=== PATIENT | female | born 1970 | race Caucasian/White ===

== ENCOUNTER 2016-07-03 15:23 | Inpatient (IN) | payer BC ==
[~2016-07-03] VITALS: Ht 162.6 cm; Wt 96.6 kg
[2016-07-03 18:15] VITALS: BP 153/104; PULSE 86; TEMP 36.9; O2SAT 96; BMI 36.8
[2016-07-03 19:12] LABS: HEMATOCRIT 43.6 % (37-47); MEAN CELL VOLUME 87.2 fL (80-100); MEAN CORPUSCULAR HEMOGLOBIN 30.6 pg (25-34); MEAN PLATELET VOLUME 10.4 fL (7.4-10.4); PLATELET COUNT 270 K/uL (130-400); WHITE BLOOD COUNT 14.05 K/uL (4.8-10.8)
[2016-07-03 19:23] LABS: PARTIAL THROMBOPLASTIN RATIO 1.1
[2016-07-03] MEDS ORDERED: POLYETHYLENE (MIRALAX) 17 GM PACK PO PRN (19:45)
[2016-07-03] MEDS ORDERED: NITROGLYCERIN 0.4 MG SL PER TAB CHARGE SL PRN (19:45)
[2016-07-03] MEDS ORDERED: ONDANSETRON INJ 2 MG/ML 2 ML VIAL IV PRN (19:45)
[2016-07-03] MEDS ORDERED: MoRPHine SULFATE 2 MG/ML CARP IV PRN (19:45)
[2016-07-03] MEDS ORDERED: MAGNESIUM HYDROXIDE SUSP 30 ML UDC PO PRN (19:45)
[2016-07-03] MEDS ORDERED: PATIENT'S ALLERGY INFO NEEDS ENTERED SCH (19:45)
[2016-07-03] MEDS ORDERED: ALUMINUM/MAGNESIUM/SIMETH (MAALOX MAX) 30 ML UDC PO PRN (19:45)
[2016-07-03] MEDS ORDERED: ZOLPIDEM TARTRATE 5 MG TAB PO PRN (19:45)
[2016-07-03 20:17] LABS: MEAN CORPUSCULAR HGB CONC 35.1 g/dl (32-36)
[2016-07-03 20:21] LABS: BASO % 0.5 %; BASO ABS # 0.07 K/uL (0-0.2); COMPLETE YES; EOS % 1.4 %; IG% 0.2 %; LYMPH % 39.6 %; LYMPH ABS # 5.56 K/uL (1.2-3.4); MONO % 4.1 %; NEUT % 54.2 %
[2016-07-03] MEDS ORDERED: GLUCOSE 40% GEL 15 GM TUBE PO PRN (20:45)
[2016-07-03] MEDS ORDERED: DEXTROSE 50% 50 ML SYR IV PRN (20:45)
[2016-07-03] MEDS ORDERED: GLUCAGON FOR INJ 1 MG VIAL SQ PRN (20:45)
[2016-07-03] MEDS ORDERED: GLUCOSE 10 TABS/TUBE PO PRN (20:45)
[2016-07-03] MEDS: HEPARIN 25,000 UNIT/500ML D5W 500 ML IV PRN (21:08)
--- NOTE | 2016-07-03 22:00 | History and Physical ---
History & Physical Date & Time of Service: Jul 03, 2016 at 21:22 Chief Complaint: Nstemi Primary Care Physician: No Doctor, Assigned History of Present Illness Source: patient 45 y/o F Hx HTN - presents as a direct transfer due to new onset DM, DKA, CP with elevated troponin. Pt developed central CP radiating into her shoulders, lasting 3 hours and accompanied by nausea and vomiting x 2. On arrival to the ER labs were consistent with DKA. She had a negative troponin initially and then a second + troponin. A decision was then made to transfer her to [facility] for further evaluation and cardiac cath rn access. She complains only of a headache and weakness upon arrival. Her CP and nausea have resolved. She arrived on a heparin GTT and an initial POC was 164. She has no previous history of DM or heart disease. Repeat labs are currently pending to evaluate the status of her DKA as she was treated for a few hours prior to her + troponin result and subsequent transfer. Past Medical/Surgical History HTN New onset DM Smoker Obese Family History Grandfather with an IA at age 76 Mother with DM Neither parent with CAD Social History Smokes one pack daily > 20 yrs Smoking Status: Current Every Day Smoker Alcohol Use: none Allergies Coded Allergies: No Known Allergies (Unverified , 07/03/16) Review of Systems Constitutional: No chills, No fever, No sweats Eyes: No eye pain, No worsening of vision ENT: No hearing loss, No nasal symptoms, No unusual epistaxis Respiratory: + shortness of breath, No cough, No sputum, No wheezing Cardiovascular: + chest pain, No PND, No claudication, No edema, No orthopnea, No palpitations Abdomen: + nausea, + vomiting, No constipation, No diarrhea, No pain Musculoskeletal: No joint pain, No muscle pain Genitourinary - Female: No dysuria, No hematuria, No urinary frequency, No urinary incontinence, No urinary retention, No urinary urgency Neurologic: No memory loss, No paralysis, No weakness Psychiatric: No depression symptoms Endocrine: + fatigue Hematologic / Lymphatic: No abnormal bleeding/bruising Integumentary: No rash Allergic / Immunologic: No environmental allergies Physical Exam Vital Signs Date Time Temp Pulse Resp B/P Pulse Ox O2 Delivery O2 Flow Rate FiO2 07/03/16 18:15 36.9 86 16 153/104 96 Room Air General Appearance: WD/WN, no apparent distress Head: normocephalic, atraumatic Eyes: normal inspection, PERRL, EOMI ENT: normal ENT inspection, pharynx normal Neck: supple, no adenopathy, thyroid normal, no JVD Respiratory/Chest: chest non-tender, lungs clear, normal breath sounds, no respiratory distress, no accessory muscle use Cardiovascular: regular rate, rhythm, no edema, no gallop Abdomen/GI: normal bowel sounds, non tender, soft Back: normal inspection, no CVA tenderness Extremities/Musculoskelatal: normal inspection, no calf tenderness, normal capillary refill, no pedal edema, normal range of motion 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, no motor/sensory deficits, alert, normal mood/affect, normal reflexes, oriented x 3 Skin: normal color, warm/dry, no rash Diagnostics Laboratory Results Results Past 24 Hours Test 07/03/16 18:31 07/03/16 19:00 07/03/16 20:30 07/03/16 21:11 Range/Units Bedside Glucose 194 174 70-90 mg/dl White Blood Count 14.05 4.8-10.8 K/uL Red Blood Count 5.00 4.2-5.4 M/uL Hemoglobin 15.3 12.0-16.0 g/dL Hematocrit 43.6 37-47 % Mean Corpuscular Volume 87.2 80-100 fL Mean Corpuscular Hemoglobin 30.6 25-34 pg Mean Corpuscular Hemoglobin Concent 35.1 32-36 g/dl Platelet Count 270 130-400 K/uL Mean Platelet Volume 10.4 7.4-10.4 fL Neutrophils (%) (Auto) 54.2 % Lymphocytes (%) (Auto) 39.6 % Monocytes (%) (Auto) 4.1 % Eosinophils (%) (Auto) 1.4 % Basophils (%) (Auto) 0.5 % Neutrophils # (Auto) 7.62 1.4-6.5 K/uL Lymphocytes # (Auto) 5.56 1.2-3.4 K/uL Monocytes # (Auto) 0.57 0.11-0.59 K/uL Eosinophils # (Auto) 0.20 0-0.5 K/uL Basophils # (Auto) 0.07 0-0.2 K/uL RDW Standard Deviation 44.4 36.4-46.3 fL RDW Coefficient of Variation 14.1 11.5-14.5 % Immature Granulocyte % (Auto) 0.2 % Immature Granulocyte # (Auto) 0.03 0.00-0.02 K/uL Activated Partial Thromboplast Time 27.8 21.0-31.0 SECONDS Partial Thromboplastin Ratio 1.1 EKG Sinus - Inf T wv inversion - no acute elevation Impression Assessment and Plan 45 y/o F Hx HTN - presents as a direct transfer due to new onset DM, DKA, CP with elevated troponin. Pt developed central CP radiating into her shoulders, lasting 3 hours and accompanied by nausea and vomiting x 2. On arrival to the ER labs were consistent with DKA. She had a negative troponin initially and then a second + troponin. A decision was then made to transfer her to [facility] for further evaluation and cardiac cath rn access. She complains only of a headache and weakness upon arrival. Her CP and nausea have resolved. She arrived on a heparin GTT and an initial POC was 164. She has no previous history of DM or heart disease. Repeat labs are currently pending to evaluate the status of her DKA as she was treated for a few hours prior to her + troponin result and subsequent transfer. 1) New onset DM, DKA - pending labs to assess status as POC is now in 160s. She will be placed on a protocol as needed or a sliding scale if appropriate. Electrolytes will be checked periodically and aggressive IV hydration is provided. Hba1C was measured at 11. 2) NSTEMI - no previous history of CAD although several risk factors are present - DM, HTN, smoking, weight. Pt has been placed on full dose Heparin. Will start a statin, asa and B louis if tolerated. Cardiology consulted for assessment as she will likely need a cath prior to D/C. Serial troponins are ordered as well as a repeat EKG and an echo to assess wall motion. She is CP free on admission 3) HTN - cont Norvasc 4) Smoking - pt has stated emphatically that she has no intention to resume smoking upon D/C. Full code - full dose heparin Tital time for this admit including review of labs, meds, EKG, outside records - discussion with pt and family - 45 min Level of Care Telemetry Advanced Directives Existing Living Will: No Existing Power of Field Human Resources Manager: No Resuscitation Status FULL RESUSCITATION VTE Prophylaxis VTE Risk Assessment Done? Y/N: Yes Risk Level: Moderate Given or contraindicated: Other Anticoagulation
[2016-07-03 22:05] LABS: BUN/CREATININE RATIO 21.7 (10-20); CALCIUM 8.5 mg/dl (8.5-10.1); CREATININE 0.58 mg/dl (0.60-1.20); MAGNESIUM 1.8 mg/dl (1.8-2.4); PHOSPHORUS 3.2 mg/dl (2.5-4.9); POTASSIUM 3.4 mmol/L (3.5-5.1)
[2016-07-03] MEDS ORDERED: INSULIN GLARGINE PER UNIT 10 UNITS in SYRINGE 0 ML SC STA (22:11)
[2016-07-03 22:12] LABS: BETA-HYDROXYBUTYRATE 2.71 mg/dL (0.2-2.81)
[2016-07-03] MEDS ORDERED: CLOPIDOGREL BISULFATE 300 MG TAB PO STA (22:24)
[2016-07-03] MEDS ORDERED: MAGNESIUM SULFATE 1GM / D5W 1 GM in PREMIXED IN D5W 100 ML IV ONE (22:30)
[2016-07-03] MEDS ORDERED: OXYCODONE/ACETAMINOPHEN 5-325 TAB PO ONE (22:30)
[2016-07-03] MEDS: POTASSIUM CHLR 10 MEQ / WTR 10 MEQ in PREMIXED WATER 100 ML IV SCH (23:05)
[2016-07-03] MEDS: NSS + 20MEQ KCL 1000ML 1,000 ML IV SCH (23:05)
[2016-07-03] MEDS: ATORVASTATIN 40 MG TAB PO SCH (23:06)
[2016-07-03 23:11] VITALS: BP 142/93; PULSE 86; TEMP 36.9; O2SAT 98
[2016-07-03] MEDS: INSULIN ASPART 100 UNITS/ML 3 ML PEN SC SCH (23:18)
[2016-07-04] MEDS: POTASSIUM CHLR 10 MEQ / WTR 10 MEQ in PREMIXED WATER 100 ML IV SCH ×3 (01:44→04:45)
[2016-07-04 03:29] LABS: PARTIAL THROMBOPLASTIN RATIO 1.5
[2016-07-04] MEDS ORDERED: HEPARIN IV BOLUS 6,000 UNIT in SYRINGE 0 ML IV ONE (03:45)
[2016-07-04 03:50] LABS: BUN/CREATININE RATIO 24.1 (10-20); CALCIUM 5.8 mg/dl (8.5-10.1); CREATININE 0.38 mg/dl (0.60-1.20); MAGNESIUM 1.6 mg/dl (1.8-2.4); POTASSIUM 3.3 mmol/L (3.5-5.1)
[2016-07-04] MEDS: HEPARIN 25,000 UNIT/500ML D5W 500 ML IV PRN ×2 (03:59→15:24)
[2016-07-04 04:26] VITALS: BP 143/99; PULSE 81; TEMP 36.7; O2SAT 97
[2016-07-04] MEDS ORDERED: POTASSIUM PHOS 3 MMOL/1 ML INFUSION IV STA (04:39)
[2016-07-04] MEDS ORDERED: CALCIUM GLUCONATE 10% 1,000 MG in SODIUM CHLORIDE 0.9% 50ML 50 ML IV STA (04:43)
[2016-07-04] MEDS ORDERED: POTASSIUM PHOSPHATE INJ 21 MMOL in SODIUM CHLORIDE 0.9% 500ML 500 ML IV SCH (05:00)
[2016-07-04] MEDS: MAGNESIUM SULFATE 1GM / D5W 1 GM in PREMIXED IN D5W 100 ML IV SCH ×2 (05:23→06:28)
[2016-07-04] MEDS: CALCIUM CARBONATE 1250MG TAB PO SCH ×3 (05:24→20:45)
[2016-07-04] MEDS: ACETAMINOPHEN 325 MG TAB PO PRN ×2 (05:26→15:15)
[2016-07-04] MEDS: INSULIN ASPART 100 UNITS/ML 3 ML PEN SC SCH ×4 (05:30→20:44)
[2016-07-04 08:22] VITALS: BP 147/109; PULSE 80; TEMP 36.7; O2SAT 97
[2016-07-04 08:39] LABS: BUN/CREATININE RATIO 13.5 (10-20); CALCIUM 8.1 mg/dl (8.5-10.1); CREATININE 0.65 mg/dl (0.60-1.20); MAGNESIUM 3.2 mg/dl (1.8-2.4); PHOSPHORUS 3.7 mg/dl (2.5-4.9); POTASSIUM 4.3 mmol/L (3.5-5.1)
[2016-07-04] MEDS ORDERED: ASPIRIN 81 MG ECTAB PO SCH (09:00)
[2016-07-04] MEDS ORDERED: METOPROLOL TARTRATE 25 MG TAB PO ONE (09:31)
[2016-07-04 09:48] LABS: PARTIAL THROMBOPLASTIN RATIO 2.4
[2016-07-04] MEDS: NSS + 20MEQ KCL 1000ML 1,000 ML IV SCH ×2 (09:57→16:24)
--- NOTE | 2016-07-04 10:15 | Cardiology Consultation ---
Cardiology Consultation Date of Consultation: Jul 04, 2016. Requesting Physician: Dr. Guevara Reason for Consultation: Chest discomfort, positive enzymes Pt evaluation today including: conversation w/ patient, conversation w/ family , physical exam, lab review, review of studies, review of inpatient medication list History of Present Illness This is a very pleasant 45-year-old woman who has a history of hypertension for which she is on medications for several years but then had lost weight and controlled her blood pressure without medications, no other known cardiovascular history. About one week ago she developed a brief episode of substernal chest discomfort, however did not seek medical attention as that was brief. 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 She describes this as a chest pressure and pain with some radiation to her left arm. She presented to [place] emergency room where her troponin was found to be negative, however she was transferred here and subsequent troponins were elevated. The symptoms resolved with initial treatment with nitroglycerin in the [place] emergency room. She was also diagnosed with diabetes on arrival in [place] ER, she is not aware of that before. She does not have a history of hypercholesterolemia to her knowledge, her parents do not have heart disease although her grandfather had heart disease identified at age 76, she does have a long smoking history. She has not had exertional angina. Since arrival here she has felt well, she is on heparin and aspirin and has had no complaints. Past Medical/Surgical History (1) New onset type 2 diabetes mellitus Hypertension Family History Her grandfather of myocardial infarction at age 76 Social History Smoking Status: Current Every Day Smoker History of Alcohol Use: No (rarely) Review of Systems Constitutional: No fever, No weakness, No weight loss Respiratory: No cough, No dyspnea on exertion, No shortness of breath, No wheezing Cardiac: + see HPI, No PND, No chest pain, No edema, No orthopnea, No palpitations Abdomen: No GI bleeding, No diarrhea, No nausea, No pain, No vomiting Female : No problem reported Neurologic: No balance problems, No numbness/tingling, No paralysis, No weakness Heme: No abnormal bleeding/bruising, No clotting problems Endo: No fatigue Skin: No problem reported All Other Systems: Reviewed and Negative Allergies Coded Allergies: No Known Allergies (Unverified , 4/14/17) Medications Current Inpatient Medications Medications (Trade) Dose Ordered Sig/Shana Route Start Time Stop Time Status Last Admin Dose Admin Insulin Aspart (novoLOG ASPART) SLIDING SCALE G... Q6 SC 07/04/16 00:00 07/04/16 05:30 4 UNITS Acetaminophen (Tylenol Tab) 650 mg Q4H PRN PO 07/03/16 19:45 08/02/16 19:44 07/04/16 05:26 650 MG Al Hydrox/Mg Hydrox/Simethicone (Maalox Max Susp) 15 ml Q4H PRN PO 07/03/16 19:45 08/02/16 19:44 Magnesium Hydroxide (Milk Of Magnesia Susp) 30 ml Q12H PRN PO 07/03/16 19:45 08/02/16 19:44 Zolpidem Tartrate (Ambien Tab) 5 mg HSZ PRN PO 07/03/16 19:45 08/02/16 19:44 Ondansetron HCl (Zofran Inj) 4 mg Q6H PRN IV 07/03/16 19:45 08/02/16 19:44 Nitroglycerin (Nitrostat Tab) 0.4 mg UD PRN SL 07/03/16 19:45 08/02/16 19:44 Morphine Sulfate (MoRPHine SULFATE INJ) 2 mg Q30M PRN IV 07/03/16 19:45 07/17/16 19:44 Aspirin (Ecotrin Tab) 81 mg QAM PO 07/04/16 09:00 08/03/16 08:59 07/04/16 08:35 81 MG Polyethylene 17 gm 17 gm DAILY PRN PO 07/03/16 19:45 08/02/16 19:44 Heparin Sodium/ Dextrose (Heparin 25,000 Unit/500ml D5W) 500 ml @ 32 mls/hr [id number] PRN IV 07/03/16 20:45 08/02/16 20:44 07/04/16 03:59 32 MLS/HR Glucose (Glucose 40% Gel) 15-30 GRAMS 15 GRAMS... UD PRN PO 07/03/16 20:45 08/02/16 20:44 Glucose (Glucose Chew Tab) 4-8 Tablets 4 Tabl... UD PRN PO 07/03/16 20:45 08/02/16 20:44 Dextrose (Dextrose 50% 50ML Syringe) 25-50ML OF 50% DW IV FOR... UD PRN IV 07/03/16 20:45 08/02/16 20:44 Glucagon 1 mg 1 mg UD PRN SQ 07/03/16 20:45 08/02/16 20:44 Potassium Chloride/Sodium Chloride (Nss + 20meq KCl 1000ml) 1,000 ml @ 150 mls/hr Q6H40M IV 07/03/16 22:45 07/04/16 18:44 07/04/16 09:57 150 MLS/HR Atorvastatin Calcium (Lipitor Tab) 40 mg HS PO 07/04/16 21:00 08/03/16 20:59 07/03/16 23:06 40 MG Calcium Carbonate (oS-Chicho 500 TAB) 1,250 mg BID PO 07/04/16 09:00 08/03/16 08:59 07/04/16 08:35 1,250 MG Metoprolol Tartrate (Lopressor Tab) 25 mg BID PO 07/04/16 21:00 08/03/16 20:59 Physical Exam Vital Signs Past 12 Hours Date Time Temp Pulse Resp B/P Pulse Ox O2 Delivery O2 Flow Rate FiO2 07/04/16 08:22 36.7 80 20 147/109 97 Room Air 07/04/16 08:00 Room Air 07/04/16 04:26 36.7 81 18 143/99 97 Room Air 07/04/16 04:00 Room Air 07/03/16 23:59 Room Air 07/03/16 23:11 36.9 86 16 142/93 98 Room Air Constitutional: General Apperance: overweight Level of Distress: NAD Psychiatric: Mental Status: active & alert Head: normocephalic Eyes: EOM: EOMI ENMT: normal ENT inspection, hearing grossly normal Neck: supple, no masses Lungs: Respiratory effort: no dyspnea, good air movement Auscultation: breath sounds normal, no wheezing Cardiovascular: Heart Auscultation: RRR, no murmurs, no rubs, no gallops Peripheral Pulses: Bruits: none appreciated Abdomen: Bowel Sounds: normal Inspection & Palpation: soft, no tenderness, guarding & rebound, no masses Musculoskeletal: normal strength (5/5 throughout) Extremities: no edema Neurologic: Cranial Nerves: grossly intact Sensation: grossly intact Data Laboratory Results: Last 24 Hours Test 07/03/16 18:31 07/03/16 19:00 07/03/16 20:30 07/03/16 21:30 Bedside Glucose 194 mg/dl 174 mg/dl White Blood Count 14.05 K/uL Red Blood Count 5.00 M/uL Hemoglobin 15.3 g/dL Hematocrit 43.6 % Mean Corpuscular Volume 87.2 fL Mean Corpuscular Hemoglobin 30.6 pg Mean Corpuscular Hemoglobin Concent 35.1 g/dl Platelet Count 270 K/uL Mean Platelet Volume 10.4 fL Neutrophils (%) (Auto) 54.2 % Lymphocytes (%) (Auto) 39.6 % Monocytes (%) (Auto) 4.1 % Eosinophils (%) (Auto) 1.4 % Basophils (%) (Auto) 0.5 % Neutrophils # (Auto) 7.62 K/uL Lymphocytes # (Auto) 5.56 K/uL Monocytes # (Auto) 0.57 K/uL Eosinophils # (Auto) 0.20 K/uL Basophils # (Auto) 0.07 K/uL RDW Standard Deviation 44.4 fL RDW Coefficient of Variation 14.1 % Immature Granulocyte % (Auto) 0.2 % Immature Granulocyte # (Auto) 0.03 K/uL Activated Partial Thromboplast Time 27.8 SECONDS Partial Thromboplastin Ratio 1.1 Sodium Level 137 mmol/L Potassium Level 3.4 mmol/L Chloride Level 105 mmol/L Carbon Dioxide Level 25 mmol/L Anion Gap 7.0 mmol/L Blood Urea Nitrogen 13 mg/dl Creatinine 0.58 mg/dl Est Creatinine Clear Calc Drug Dose 140.2 ml/min Estimated GFR () 129.9 Estimated GFR (Non- 112.1 BUN/Creatinine Ratio 21.7 Random Glucose 201 mg/dl Calcium Level 8.5 mg/dl Phosphorus Level 3.2 mg/dl Magnesium Level 1.8 mg/dl Total Creatine Kinase 156 U/L Troponin I 3.530 ng/ml Beta-Hydroxybutyric Acid 2.71 mg/dL Test 07/03/16 23:14 07/04/16 03:09 07/04/16 05:27 07/04/16 07:10 Bedside Glucose 326 mg/dl 253 mg/dl Activated Partial Thromboplast Time 39.2 SECONDS Partial Thromboplastin Ratio 1.5 Sodium Level 145 mmol/L 136 mmol/L Potassium Level 3.3 mmol/L 4.3 mmol/L Chloride Level 117 mmol/L 107 mmol/L Carbon Dioxide Level 20 mmol/L 21 mmol/L Anion Gap 8.0 mmol/L 8.0 mmol/L Blood Urea Nitrogen 9 mg/dl 9 mg/dl Creatinine 0.38 mg/dl 0.65 mg/dl Est Creatinine Clear Calc Drug Dose 214.0 ml/min 125.6 ml/min Estimated GFR () 149.3 125.1 Estimated GFR (Non- 128.8 108.0 BUN/Creatinine Ratio 24.1 13.5 Random Glucose 215 mg/dl 273 mg/dl Calcium Level 5.8 mg/dl 8.1 mg/dl Phosphorus Level 2.0 mg/dl 3.7 mg/dl Magnesium Level 1.6 mg/dl 3.2 mg/dl Troponin I 1.860 ng/ml Test 07/04/16 09:05 07/04/16 09:34 Activated Partial Thromboplast Time 61.8 SECONDS Partial Thromboplastin Ratio 2.4 Imaging: An echocardiogram shows inferior hypokinesis consistent with ischemia or infarction. EKG: Sinus rhythm with inferior Q waves consistent with an indeterminate age myocardial infarction. No acute changes. Telemetry reviewed: Sinus rhythm, no significant arrhythmia Assessment & Plan #1. Chest discomfort: Her recent chest discomfort is consistent with ischemic heart disease. #2. Myocardial infarction: She appears stiff had a myocardial infarction recently, probably with reperfusion although it is not clear. Her initial troponin was negative followed by a significant increase and then a drop, her electric cardiogram suggests a completed inferior myocardial infarction which could be due to reperfusion or an old infarction that was unrecognized. Her echocardiogram suggests an inferior infarction as well. At this point I would continue intravenous heparin, I will switch her to aspirin 325 mg daily. With recurrent symptoms we should start Integrilin. Agree with beta blockade. She will need to have a cardiac catheterization, we will plan that for Wednesday. Thank you for allowing me to participate in her care.
[2016-07-04 10:30] LABS: CHOLESTEROL/HDL RATIO 6.5
[2016-07-04] MEDS ORDERED: NURSING VERBAL MED ORDER ONE (10:45)
[2016-07-04] MEDS ORDERED: INSULIN GLARGINE SOLOSTAR 100 UNITS/ML 3 ML PEN SC ONE (11:00)
[2016-07-04 11:03] VITALS: BP 144/102; PULSE 75; TEMP 36.3; O2SAT 97
--- NOTE | 2016-07-04 12:41 | Family Medicine Progress Note ---
Progress Note Date of Service Jul 04, 2016. Subjective Pt evaluation today including: conversation w/ patient, conversation w/ family , physical exam, chart review, lab review, review of studies Pain: No complains of pain this morning Voiding: no voiding problems, no incontinence Patient is resting comfortably in bed this morning with no acute complaints overnight. She denies any chest pain but did have a headache has now resolved. Denies any nausea, vomiting, fevers, chills, shortness of breath, abdominal pain , or dizziness. Constitutional: No chills, No fever, No sweats Respiratory: No cough, No shortness of breath, No sputum, No wheezing Cardiovascular: No chest pain, No edema Abdomen: No nausea, No pain, No vomiting Neurologic: No numbness/tingling Medications Current Inpatient Medications Medications (Trade) Dose Ordered Sig/Shana Route Start Time Stop Time Status Last Admin Dose Admin Acetaminophen (Tylenol Tab) 650 mg Q4H PRN PO 07/03/16 19:45 08/02/16 19:44 07/04/16 05:26 650 MG Al Hydrox/Mg Hydrox/Simethicone (Maalox Max Susp) 15 ml Q4H PRN PO 07/03/16 19:45 08/02/16 19:44 Magnesium Hydroxide (Milk Of Magnesia Susp) 30 ml Q12H PRN PO 07/03/16 19:45 08/02/16 19:44 Zolpidem Tartrate (Ambien Tab) 5 mg HSZ PRN PO 07/03/16 19:45 08/02/16 19:44 Ondansetron HCl (Zofran Inj) 4 mg Q6H PRN IV 07/03/16 19:45 08/02/16 19:44 Nitroglycerin (Nitrostat Tab) 0.4 mg UD PRN SL 07/03/16 19:45 08/02/16 19:44 Morphine Sulfate (MoRPHine SULFATE INJ) 2 mg Q30M PRN IV 07/03/16 19:45 07/17/16 19:44 Polyethylene 17 gm 17 gm DAILY PRN PO 07/03/16 19:45 08/02/16 19:44 Heparin Sodium/ Dextrose (Heparin 25,000 Unit/500ml D5W) 500 ml @ 32 mls/hr [id number] PRN IV 07/03/16 20:45 08/02/16 20:44 07/04/16 03:59 32 MLS/HR Glucose (Glucose 40% Gel) 15-30 GRAMS 15 GRAMS... UD PRN PO 07/03/16 20:45 08/02/16 20:44 Glucose (Glucose Chew Tab) 4-8 Tablets 4 Tabl... UD PRN PO 07/03/16 20:45 08/02/16 20:44 Dextrose (Dextrose 50% 50ML Syringe) 25-50ML OF 50% DW IV FOR... UD PRN IV 07/03/16 20:45 08/02/16 20:44 Glucagon 1 mg 1 mg UD PRN SQ 07/03/16 20:45 08/02/16 20:44 Potassium Chloride/Sodium Chloride (Nss + 20meq KCl 1000ml) 1,000 ml @ 100 mls/hr Q10H IV 07/03/16 22:45 07/04/16 18:00 07/04/16 09:57 150 MLS/HR Atorvastatin Calcium (Lipitor Tab) 40 mg HS PO 07/04/16 21:00 08/03/16 20:59 07/03/16 23:06 40 MG Calcium Carbonate (oS-Chicho 500 TAB) 1,250 mg BID PO 07/04/16 09:00 08/03/16 08:59 07/04/16 08:35 1,250 MG Metoprolol Tartrate (Lopressor Tab) 25 mg BID PO 07/04/16 21:00 08/03/16 20:59 Aspirin (Ecotrin Tab) 325 mg QAM PO 07/05/16 09:00 08/04/16 08:59 Insulin Glargine (Lantus Solostar Pen) 10 unit 2200 SC 07/04/16 22:00 07/04/16 22:01 Insulin Aspart (novoLOG ASPART) SLIDING SCALE G... ACHS SC 07/04/16 11:00 08/03/16 10:59 07/04/16 12:16 6 UNITS Objective Vital Signs Date Time Temp Pulse Resp B/P Pulse Ox O2 Delivery O2 Flow Rate FiO2 07/04/16 11:03 36.3 75 20 144/102 97 Room Air 07/04/16 08:22 36.7 80 20 147/109 97 Room Air 07/04/16 08:00 Room Air 07/04/16 04:26 36.7 81 18 143/99 97 Room Air 07/04/16 04:00 Room Air 07/03/16 23:59 Room Air 07/03/16 23:11 36.9 86 16 142/93 98 Room Air 07/03/16 20:00 Room Air 07/03/16 18:15 36.9 86 16 153/104 96 Room Air Physical Exam General Appearance: WD/WN, no apparent distress, + obese Eyes: normal inspection, sclerae normal Neck: supple, no carotid bruits, trachea midline Respiratory/Chest: chest non-tender, lungs clear, normal breath sounds, no respiratory distress, no accessory muscle use Cardiovascular: regular rate, rhythm, no edema, no gallop, no JVD, no murmur Abdomen: normal bowel sounds, non tender, soft Extremities: no pedal edema, no calf tenderness Neurologic/Psychiatric: alert, normal mood/affect, oriented x 3 Skin: no rash Laboratory Results Results Past 24 Hours Test 07/03/16 18:31 07/03/16 19:00 07/03/16 20:30 07/03/16 21:30 Range/Units Bedside Glucose 194 174 70-90 mg/dl White Blood Count 14.05 4.8-10.8 K/uL Red Blood Count 5.00 4.2-5.4 M/uL Hemoglobin 15.3 12.0-16.0 g/dL Hematocrit 43.6 37-47 % Mean Corpuscular Volume 87.2 80-100 fL Mean Corpuscular Hemoglobin 30.6 25-34 pg Mean Corpuscular Hemoglobin Concent 35.1 32-36 g/dl Platelet Count 270 130-400 K/uL Mean Platelet Volume 10.4 7.4-10.4 fL Neutrophils (%) (Auto) 54.2 % Lymphocytes (%) (Auto) 39.6 % Monocytes (%) (Auto) 4.1 % Eosinophils (%) (Auto) 1.4 % Basophils (%) (Auto) 0.5 % Neutrophils # (Auto) 7.62 1.4-6.5 K/uL Lymphocytes # (Auto) 5.56 1.2-3.4 K/uL Monocytes # (Auto) 0.57 0.11-0.59 K/uL Eosinophils # (Auto) 0.20 0-0.5 K/uL Basophils # (Auto) 0.07 0-0.2 K/uL RDW Standard Deviation 44.4 36.4-46.3 fL RDW Coefficient of Variation 14.1 11.5-14.5 % Immature Granulocyte % (Auto) 0.2 % Immature Granulocyte # (Auto) 0.03 0.00-0.02 K/uL Activated Partial Thromboplast Time 27.8 21.0-31.0 SECONDS Partial Thromboplastin Ratio 1.1 Sodium Level 137 136-145 mmol/L Potassium Level 3.4 3.5-5.1 mmol/L Chloride Level 105 98-107 mmol/L Carbon Dioxide Level 25 21-32 mmol/L Anion Gap 7.0 3-11 mmol/L Blood Urea Nitrogen 13 7-18 mg/dl Creatinine 0.58 0.60-1.20 mg/dl Est Creatinine Clear Calc Drug Dose 140.2 ml/min Estimated GFR () 129.9 Estimated GFR (Non- 112.1 BUN/Creatinine Ratio 21.7 10-20 Random Glucose 201 70-99 mg/dl Calcium Level 8.5 8.5-10.1 mg/dl Phosphorus Level 3.2 2.5-4.9 mg/dl Magnesium Level 1.8 1.8-2.4 mg/dl Total Creatine Kinase 156 26-192 U/L Troponin I 3.530 0-0.045 ng/ml Beta-Hydroxybutyric Acid 2.71 0.2-2.81 mg/dL Test 07/03/16 23:14 07/04/16 03:09 07/04/16 05:27 07/04/16 07:10 Range/Units Bedside Glucose 326 253 70-90 mg/dl Activated Partial Thromboplast Time 39.2 21.0-31.0 SECONDS Partial Thromboplastin Ratio 1.5 Sodium Level 145 136 136-145 mmol/L Potassium Level 3.3 4.3 3.5-5.1 mmol/L Chloride Level 117 107 98-107 mmol/L Carbon Dioxide Level 20 21 21-32 mmol/L Anion Gap 8.0 8.0 3-11 mmol/L Blood Urea Nitrogen 9 9 7-18 mg/dl Creatinine 0.38 0.65 0.60-1.20 mg/dl Est Creatinine Clear Calc Drug Dose 214.0 125.6 ml/min Estimated GFR () 149.3 125.1 Estimated GFR (Non- 128.8 108.0 BUN/Creatinine Ratio 24.1 13.5 10-20 Random Glucose 215 273 70-99 mg/dl Calcium Level 5.8 8.1 8.5-10.1 mg/dl Phosphorus Level 2.0 3.7 2.5-4.9 mg/dl Magnesium Level 1.6 3.2 1.8-2.4 mg/dl Troponin I 1.860 0-0.045 ng/ml Triglycerides Level 316 0-150 mg/dl Cholesterol Level 182 0-200 mg/dl HDL Cholesterol 28 mg/dl LDL Cholesterol, Calculated 91 mg/dl VLDL Cholesterol, Calculated 63 mg/dl Cholesterol/HDL Ratio 6.5 Test 07/04/16 09:05 07/04/16 11:01 Range/Units Activated Partial Thromboplast Time 61.8 21.0-31.0 SECONDS Partial Thromboplastin Ratio 2.4 Bedside Glucose 226 70-90 mg/dl Assessment and Plan Prachi is a 45 year old female with a past medical history of lifestyle controlled hypertension and is an active smoker that presents with NSTEMI and new onset Diabetes with possible DKA 1) NSTEMI - Troponins - Peak of 3.53, currently trending down - EKG - Inferior Wall Infarct - ECHO - Mild left ventricular systolic dysfunction - Inferior,basal septal,basal posterior hypokinesis - Mild concentric left ventricular hypertrophy - Left ventricular diastolic dysfunction - Cardiology Consult - ECHO and EKG suggest inferior GA - Switch Aspirin to 325mg - Stay on heparin - May require Integrilin if have new event of c/p - Cardiac Catheterization on Wednesday - Heparin - Metoprolol 25mg PO BID - Lipitor 40mg qHS - Aspirin 325mg daily - Plavix 300mg one dose last night - Acetaminophen 650mm q6h for pain - Nitroglycerin 0.4mg PRN for chest pain - Lipid profile for tomorrow morning 2) New Onset Diabetes/ DKA - Lantus 10 units this morning and 10 units tonight - Insulin sliding scale - Q6 Blood Sugar checks - Daily CBC and BMP - Beta-Hydroxybutarate - 2.71 (wnl) - Urine Ketones Positive - Diabetic Education referral placed - C-peptide ordered for tomorrow 3) Hypokalemia - Replaced - 4.3 (wnl) - KCl 20mEq with IV fluids 4) Hypomagnesemia - Replaced - 3.2 (H) - 1gm mag sulfate yesterday 5) Hypophosphatemia - Repleted - 3.7 (wnl) 6) Hypertension - Metoprolol 2.5 mg BID - Add JIMMIE inhibitor once condition is stabilized Reviewed: Pt Seen/Exam by Me History Resident Physician Supervision Note: I was present with Dr. Odom during the history and exam. I discussed the case with the resident and agree with the findings and plan as documented in the note. Any exceptions or clarifications are listed here: Patient denies any chest pain today, has had a few nonsustained runs of ventricular tachycardia on telemetry. Electrolytes have been repleted. Telemetry and vital signs reviewed No acute distress Regular rate and rhythm, no murmurs rubs or gallops Lungs clear to auscultation bilaterally, no wheezes crackles or rhonchi, breathing unlabored No carotid bruits Abdomen soft nontender nondistended positive bowel sounds Extremities no edema, 2+ dorsalis pedis pulses Skin no rashes 45-year-old female with history of obesity, smoking, and hypertension, presents with non-STEMI and new onset diabetes with DKA. Echocardiogram shows hypokinesis of the inferior wall consistent with her inferior wall GA and mildly low LV function with an EF of 40-45%. -Replete electrolytes and watch on telemetry for continued ventricular arrhythmias -Would go to cardiac cath urgently if has recurrent chest pain or sustained V. tach, otherwise plan for cardiac catheterization on Wednesday -Continue aspirin, statin, heparin drip, beta louis, when necessary nitrates -Discussed tobacco cessation at length-she would like to try Wellbutrin after discharge -Discussed new diagnosis of diabetes. She is now on long-acting insulin with pre-meal NovoLog-check autoimmune antibodies given her mixed type I and type II picture Documented By: Allison Moody
--- NOTE | 2016-07-04 13:02 | ECHOCARDIOGRAM REPORT ---
*NOTICE TO RECEIVING CONSTITUTION PARTY AGENCY This information is strictly Confidential and protected under [place] law. [place] law prohibits you from making any further disclosure of this information unless further disclosure is expressly permitted by the written consent of the person to whom it pertains or is authorized by law. A general authorization for the release of medical or other information is not sufficient for this purpose. Hospital accepts no responsibility if the information is made available to any other person, INCLUDING THE PATIENT. Interpretation Summary * Name: MARK MACIAS Study Date: 07/04/2016 07:49 AM BP: 147/109 mmHg * Patient Location: .2E\S\E211\S\1 HR: 75 * : 1970 (M/d/yyyy) Gender: Female Height: 64 in * Age: 45 yrs Ethnicity: [place] Weight: 214 lb * Ordering Physician: Esvin Guevara * Referring Physician: UNKNOWN * Performed By: Rosanne Christian RCS * * Reason For Study: ELEVATED TROPONIN * BSA: 2.0 m2 * Mild left ventricular systolic dysfunction. * Inferior,basal septal,basal posterior hypokinesis. * Mild concentric left ventricular hypertrophy. * Left ventricular diastolic dysfunction. * No significant valvular abnormalities. * Normal chamber dimensions. Procedure Details * A complete two-dimensional transthoracic echocardiogram was performed (2D, M-mode, Doppler and color flow Doppler). * A contrast injection of Definity was performed to improve assessment of LV function. * Contrast was injected into an intravenous site in the right arm. * One vial of Definity ultrasound contrast was diluted in normal saline to a total volume of 10 ml. A total of '3' ml of solution was administered during imaging. * Lot # [id number] of Definity utilized for procedure. * Expiration date 1 MAY 09. * The attending nurse who injected the contrast agent was EDITH VELASCO RN. Left Ventricle * The left ventricle is normal in size. * There is mild concentric left ventricular hypertrophy. * Ejection Fraction = 40-45%. * Left ventricular systolic function is mildly reduced. * A full diastolic examination was done with clinical findings of Class I diastolic dysfunction. * There is severe inferior wall hypokinesis. Right Ventricle * The right ventricle is normal in size and function. Atria * The left atrial size is normal. * Right atrial size is normal. * No ASD detected; PFO is not assessed. Mitral Valve * The mitral valve is normal. * There is no mitral valve stenosis. * There is no mitral regurgitation noted. Tricuspid Valve * The tricuspid valve is normal. * There is no tricuspid stenosis. * There is trace tricuspid regurgitation. Aortic Valve * The aortic valve is trileaflet. * The aortic valve opens well. * Aortic stenosis is absent. * No aortic regurgitation is present. Pulmonic Valve * The pulmonic valve is not well seen, but is grossly normal. * There is no pulmonic valvular stenosis. * There is no pulmonic valvular regurgitation. Great Vessels * The aortic root is normal size. Pericardium/Pleural * There is no pericardial effusion. Great Vessels * Normal inferior vena cava diameter and respiratory variation suggests normal central venous pressure. MMode 2D Measurements and Calculations IVSd 1.3 cm IVSs 1.5 cm LVIDd 4.3 cm LVIDs 3.4 cm LVPWd 1.4 cm LVPWs 1.4 cm IVS/LVPW 0.92 FS 20.7 % EDV(Teich) 81.2 ml ESV(Teich) 46.8 ml EF(Teich) 42.4 % EDV(cubed) 77.3 ml ESV(cubed) 38.6 ml EF(cubed) 50.0 % % IVS thick 17.1 % % LVPW thick 0.15 % LV mass(C)d 211.5 grams LV mass(C)dI 105.1 grams/m\S\2 LV mass(C)s 172.2 grams LV mass(C)sI 85.5 grams/m\S\2 SV(Teich) 34.5 ml SI(Teich) 17.1 ml/m\S\2 SV(cubed) 38.7 ml SI(cubed) 19.2 ml/m\S\2 Ao root diam 3.4 cm Ao root area 9.3 cm\S\2 ACS 1.8 cm LA dimension 3.0 cm LA/Ao 0.87 LVOT diam 2.0 cm LVOT area 3.0 cm\S\2 LVAd ap4 31.4 cm\S\2 LVLd ap4 8.5 cm EDV(MOD-sp4) 96.1 ml EDV(sp4-el) 99.1 ml LVAs ap4 23.1 cm\S\2 LVLs ap4 7.7 cm ESV(MOD-sp4) 59.7 ml ESV(sp4-el) 59.1 ml EF(MOD-sp4) 37.9 % EF(sp4-el) 40.3 % LVAd ap2 30.1 cm\S\2 LVLd ap2 8.6 cm EDV(MOD-sp2) 87.0 ml EDV(sp2-el) 89.5 ml LVAs ap2 20.9 cm\S\2 LVLs ap2 7.5 cm ESV(MOD-sp2) 48.6 ml ESV(sp2-el) 49.5 ml EF(MOD-sp2) 44.1 % EF(sp2-el) 44.8 % LVLd %diff 1.3 % EDV(MOD-bp) 91.8 ml LVLs %diff -1.94 % ESV(MOD-bp) 53.6 ml EF(MOD-bp) 41.6 % SV(MOD-sp4) 36.4 ml SI(MOD-sp4) 18.1 ml/m\S\2 SV(MOD-sp2) 38.4 ml SI(MOD-sp2) 19.1 ml/m\S\2 SV(MOD-bp) 38.1 ml SI(MOD-bp) 18.9 ml/m\S\2 SV(sp4-el) 40.0 ml SI(sp4-el) 19.9 ml/m\S\2 SV(sp2-el) 40.1 ml SI(sp2-el) 19.9 ml/m\S\2 Doppler Measurements and Calculations MV E max paco 66.0 cm/sec MV A max paco 75.7 cm/sec MV E/A 0.87 MV P1/2t max paco 79.9 cm/sec MV P1/2t 62.4 msec MVA(P1/2t) 3.5 cm\S\2 MV dec slope 375.3 cm/sec\S\2 MV dec time 0.24 sec Ao V2 max 132.9 cm/sec Ao max PG 7.1 mmHg Ao max PG (full) 3.0 mmHg LAINE(V,A) 2.3 cm\S\2 LAINE(V,D) 2.3 cm\S\2 LV V1 max PG 4.0 mmHg LV V1 max 100.5 cm/sec PA V2 max 68.4 cm/sec PA max PG 1.9 mmHg
[2016-07-04 14:41] VITALS: BP 159/109; PULSE 84; TEMP 36.8; O2SAT 98
[2016-07-04 14:44] LABS: BUN/CREATININE RATIO 10.6 (10-20); CALCIUM 8.3 mg/dl (8.5-10.1); CREATININE 0.74 mg/dl (0.60-1.20); POTASSIUM 4.2 mmol/L (3.5-5.1)
[2016-07-04 19:01] VITALS: BP 123/89; PULSE 77; TEMP 36.9; O2SAT 98
[2016-07-04] MEDS: ATORVASTATIN 40 MG TAB PO SCH (20:45)
[2016-07-04] MEDS: METOPROLOL TARTRATE 25 MG TAB PO SCH (20:46)
[2016-07-04] MEDS ORDERED: INSULIN GLARGINE SOLOSTAR 100 UNITS/ML 3 ML PEN SC SCH (22:00)
[2016-07-05] VITALS (7 sets, daily range): BP systolic 104–157; BP diastolic 58–106; PULSE 63–83; TEMP 36.9–37.1; O2SAT 96–99
[2016-07-05 05:25] LABS: HEMATOCRIT 44.9 % (37-47); MEAN CELL VOLUME 87.9 fL (80-100); MEAN CORPUSCULAR HEMOGLOBIN 30.7 pg (25-34); MEAN PLATELET VOLUME 10.4 fL (7.4-10.4); PLATELET COUNT 288 K/uL (130-400); RED BLOOD COUNT 5.11 M/uL (4.2-5.4); WHITE BLOOD COUNT 11.82 K/uL (4.8-10.8)
[2016-07-05 05:36] LABS: PARTIAL THROMBOPLASTIN RATIO 1.7
[2016-07-05 05:43] LABS: BUN/CREATININE RATIO 10.4 (10-20); CALCIUM 8.8 mg/dl (8.5-10.1); CREATININE 0.7 mg/dl (0.60-1.20); PHOSPHORUS 3.8 mg/dl (2.5-4.9); POTASSIUM 4.2 mmol/L (3.5-5.1)
[2016-07-05] MEDS ORDERED: HEPARIN IV BOLUS 3,000 UNIT in SYRINGE 0 ML IV ONE (06:45)
[2016-07-05] MEDS: HEPARIN 25,000 UNIT/500ML D5W 500 ML IV PRN ×2 (06:49→22:40)
[2016-07-05] MEDS: ASPIRIN 325 MG ECTAB PO SCH (08:39)
[2016-07-05] MEDS: METOPROLOL TARTRATE 25 MG TAB PO SCH ×2 (08:39→21:03)
[2016-07-05] MEDS: CALCIUM CARBONATE 1250MG TAB PO SCH ×2 (08:39→21:03)
[2016-07-05] MEDS: INSULIN ASPART 100 UNITS/ML 3 ML PEN SC SCH ×4 (08:43→21:00)
--- NOTE | 2016-07-05 11:30 | Cardiology Follow-Up ---
Subjective Date of Service: Jul 05, 2016. Pt evaluation today including: conversation w/ patient, physical exam, lab review, review of studies, review of inpatient medication list History of Present Illness This is a very pleasant 45-year-old woman who has a history of hypertension for which she is on medications for several years but then had lost weight and controlled her blood pressure without medications, no other known cardiovascular history. About one week ago she developed a brief episode of substernal chest discomfort, however did not seek medical attention as that was brief. 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 She describes this as a chest pressure and pain with some radiation to her left arm. She presented to [place] emergency room where her troponin was found to be negative, however she was transferred here and subsequent troponins were elevated. The symptoms resolved with initial treatment with nitroglycerin in the [place] emergency room. She was also diagnosed with diabetes on arrival in [place] ER, she is not aware of that before. She does not have a history of hypercholesterolemia to her knowledge, her parents do not have heart disease although her grandfather had heart disease identified at age 76, she does have a long smoking history. She has not had exertional angina. Since arrival here she has felt well, she is on heparin and aspirin and has had no complaints. No further chest discomfort. Social History Smoking Status: Current Every Day Smoker History of Alcohol Use: No (rarely) Review of Systems Respiratory: No cough, No shortness of breath, No sputum, No wheezing Cardiac: No chest pain, No edema Medications Cardiovascular: Item Value Date Time Aspirin 325 mg 07/05/16 0900 (Ecotrin Tab) QAM/PO 07/05/16 0839 Atorvastatin 40 mg 07/04/16 2100 Calcium HS/PO 07/04/162044 (Lipitor Tab) Metoprolol 25 mg 07/04/16 2100 Tartrate BID/PO 07/05/16 0839 (Lopressor Tab) Heparin Sodium/ 500 ml @ 35 mls/hr 07/03/162044 Dextrose .[id number] PRN/IV 07/05/16 0649 Objective Vital Signs Past 12 Hours Date Time Temp Pulse Resp B/P Pulse Ox O2 Delivery O2 Flow Rate FiO2 07/05/16 08:19 37.1 83 20 145/102 98 Room Air 07/05/16 08:00 Room Air 07/05/16 04:39 37.1 74 18 144/99 97 Room Air 07/05/16 04:00 Room Air 07/05/16 00:10 37.0 75 18 133/84 97 Room Air 07/05/16 00:00 Room Air Last Recorded Weight-Kilograms: 96.800 Intake & Output 8-Hour Column 07/04/16 07/05/16 07/05/16 16:00 00:00 08:00 Intake Total 1724 ml 1554 ml 1370 ml Output Total 2700 ml 1500 ml 1100 ml Balance -976 ml 54 ml 270 ml 24-Hour Column 07/05/16 08:00 Intake Total 4648 ml Output Total 5300 ml Balance -652 ml Physical Exam Constitutional: General Apperance: overweight Level of Distress: NAD Lungs: Respiratory effort: no dyspnea, good air movement Auscultation: breath sounds normal, no wheezing Cardiovascular: Heart Auscultation: RRR, no murmurs, no rubs, no gallops Peripheral Pulses: Bruits: none appreciated Extremities: no edema Data Laboratory Results: Last 24 Hours Test 07/04/16 14:15 07/04/16 15:57 07/04/16 20:42 07/05/16 00:14 Sodium Level 139 mmol/L Potassium Level 4.2 mmol/L Chloride Level 107 mmol/L Carbon Dioxide Level 26 mmol/L Anion Gap 6.0 mmol/L Blood Urea Nitrogen 8 mg/dl Creatinine 0.74 mg/dl Est Creatinine Clear Calc Drug Dose 110.3 ml/min Estimated GFR () 114.2 Estimated GFR (Non- 98.5 BUN/Creatinine Ratio 10.6 Random Glucose 211 mg/dl Calcium Level 8.3 mg/dl Bedside Glucose 201 mg/dl 144 mg/dl 164 mg/dl Test 07/05/16 05:08 07/05/16 05:15 07/05/16 06:49 07/05/16 11:01 Sodium Level 139 mmol/L Potassium Level 4.2 mmol/L Chloride Level 106 mmol/L Carbon Dioxide Level 27 mmol/L Anion Gap 6.0 mmol/L Blood Urea Nitrogen 7 mg/dl Creatinine 0.70 mg/dl Est Creatinine Clear Calc Drug Dose 116.6 ml/min Estimated GFR () 122.1 Estimated GFR (Non- 105.4 BUN/Creatinine Ratio 10.4 Random Glucose 212 mg/dl Calcium Level 8.8 mg/dl Phosphorus Level 3.8 mg/dl White Blood Count 11.82 K/uL Red Blood Count 5.11 M/uL Hemoglobin 15.7 g/dL Hematocrit 44.9 % Mean Corpuscular Volume 87.9 fL Mean Corpuscular Hemoglobin 30.7 pg Mean Corpuscular Hemoglobin Concent 35.0 g/dl RDW Standard Deviation 45.6 fL RDW Coefficient of Variation 14.1 % Platelet Count 288 K/uL Mean Platelet Volume 10.4 fL Activated Partial Thromboplast Time 43.8 SECONDS Partial Thromboplastin Ratio 1.7 Bedside Glucose 189 mg/dl 189 mg/dl Imaging: Echo shows inferior and posterior hypokinesis Telemetry reviewed: Sinus rhythm and no significant arrhythmia. Assessment and Plan #1. Chest discomfort: Her recent chest discomfort is consistent with ischemic heart disease. #2. Myocardial infarction: She appears to have had a myocardial infarction recently, probably with reperfusion although it is not clear. Her initial troponin was negative followed by a significant increase and then a drop, her electrocardiogram suggests a completed inferior myocardial infarction which could be due to reperfusion or an old infarction that was unrecognized. Her echocardiogram suggests an inferior infarction as well. At this point I would continue intravenous heparin, I will switch her to aspirin 325 mg daily. With recurrent symptoms we should start Integrilin. Agree with beta blockade. She will need to have a cardiac catheterization, I reviewed that with her and I will place her on the schedule for 07/06/2016. Thank you for allowing me to participate in her care.
[2016-07-05 12:42] LABS: PARTIAL THROMBOPLASTIN RATIO 2.1
--- NOTE | 2016-07-05 15:54 | Family Medicine Progress Note ---
Progress Note Date of Service Jul 05, 2016. Subjective Pt evaluation today including: conversation w/ patient, physical exam, chart review, lab review, review of studies Pain: No pain reported this morning Voiding: no voiding problems, no incontinence Patient resting comfortably in bed this morning with no acute complaints overnight. Did not have much of an appetite this morning. Denies any chest pain , shortness of breath, or lightheadedness Constitutional: No fever Respiratory: No cough, No shortness of breath Cardiovascular: No chest pain, No palpitations Abdomen: No nausea, No pain, No vomiting Medications Current Inpatient Medications Medications (Trade) Dose Ordered Sig/Shana Route Start Time Stop Time Status Last Admin Dose Admin Acetaminophen (Tylenol Tab) 650 mg Q4H PRN PO 07/03/16 19:45 08/02/16 19:44 07/04/16 15:15 650 MG Al Hydrox/Mg Hydrox/Simethicone (Maalox Max Susp) 15 ml Q4H PRN PO 07/03/16 19:45 08/02/16 19:44 Magnesium Hydroxide (Milk Of Magnesia Susp) 30 ml Q12H PRN PO 07/03/16 19:45 08/02/16 19:44 Zolpidem Tartrate (Ambien Tab) 5 mg HSZ PRN PO 07/03/16 19:45 08/02/16 19:44 Ondansetron HCl (Zofran Inj) 4 mg Q6H PRN IV 07/03/16 19:45 08/02/16 19:44 Nitroglycerin (Nitrostat Tab) 0.4 mg UD PRN SL 07/03/16 19:45 08/02/16 19:44 Morphine Sulfate (MoRPHine SULFATE INJ) 2 mg Q30M PRN IV 07/03/16 19:45 07/17/16 19:44 Polyethylene 17 gm 17 gm DAILY PRN PO 07/03/16 19:45 08/02/16 19:44 Heparin Sodium/ Dextrose (Heparin 25,000 Unit/500ml D5W) 500 ml @ 35 mls/hr [id number] PRN IV 07/03/16 20:45 08/02/16 20:44 07/05/16 06:49 35 MLS/HR Glucose (Glucose 40% Gel) 15-30 GRAMS 15 GRAMS... UD PRN PO 07/03/16 20:45 08/02/16 20:44 Glucose (Glucose Chew Tab) 4-8 Tablets 4 Tabl... UD PRN PO 07/03/16 20:45 08/02/16 20:44 Dextrose (Dextrose 50% 50ML Syringe) 25-50ML OF 50% DW IV FOR... UD PRN IV 07/03/16 20:45 08/02/16 20:44 Glucagon (Glucagon Inj) 1 mg UD PRN SQ 07/03/16 20:45 08/02/16 20:44 Atorvastatin Calcium (Lipitor Tab) 40 mg HS PO 07/04/16 21:00 08/03/16 20:59 07/04/16 20:45 40 MG Calcium Carbonate (oS-Chicho 500 TAB) 1,250 mg BID PO 07/04/16 09:00 08/03/16 08:59 07/05/16 08:39 1,250 MG Metoprolol Tartrate (Lopressor Tab) 25 mg BID PO 07/04/16 21:00 08/03/16 20:59 07/05/16 08:39 25 MG Aspirin (Ecotrin Tab) 325 mg QAM PO 07/05/16 09:00 08/04/16 08:59 07/05/16 08:39 325 MG Insulin Aspart SLIDING SCALE G... ACHS SC 07/04/16 11:00 08/03/16 10:59 07/05/16 12:23 5 UNITS Sodium Chloride (Nss 1000ml) 1,000 ml @ 97 mls/hr [id number] IV 07/06/16 00:00 08/05/16 00:00 Objective Vital Signs Date Time Temp Pulse Resp B/P Pulse Ox O2 Delivery O2 Flow Rate FiO2 07/05/16 14:44 36.9 72 18 141/98 98 Room Air 07/05/16 12:00 Room Air 07/05/16 11:04 37.0 63 20 136/91 96 Room Air 07/05/16 08:19 37.1 83 20 145/102 98 Room Air 07/05/16 08:00 Room Air 07/05/16 04:39 37.1 74 18 144/99 97 Room Air 07/05/16 04:00 Room Air 07/05/16 00:10 37.0 75 18 133/84 97 Room Air 07/05/16 00:00 Room Air 07/04/16 20:00 Room Air 07/04/16 19:01 36.9 77 18 123/89 98 Room Air 07/04/16 16:00 Room Air Physical Exam General Appearance: WD/WN, no apparent distress Neck: supple, no carotid bruits, trachea midline Respiratory/Chest: chest non-tender, lungs clear, normal breath sounds, no respiratory distress, no accessory muscle use Cardiovascular: regular rate, rhythm, no edema, no gallop, no murmur Abdomen: normal bowel sounds, non tender, soft Extremities: non-tender, normal inspection, no pedal edema, no calf tenderness Neurologic/Psychiatric: alert, normal mood/affect, oriented x 3 Laboratory Results Results Past 24 Hours Test 07/04/16 15:57 07/04/16 20:42 07/05/16 00:14 07/05/16 05:08 Range/Units Bedside Glucose 201 144 164 70-90 mg/dl Sodium Level 139 136-145 mmol/L Potassium Level 4.2 3.5-5.1 mmol/L Chloride Level 106 98-107 mmol/L Carbon Dioxide Level 27 21-32 mmol/L Anion Gap 6.0 3-11 mmol/L Blood Urea Nitrogen 7 7-18 mg/dl Creatinine 0.70 0.60-1.20 mg/dl Est Creatinine Clear Calc Drug Dose 116.6 ml/min Estimated GFR () 122.1 Estimated GFR (Non- 105.4 BUN/Creatinine Ratio 10.4 10-20 Random Glucose 212 70-99 mg/dl Calcium Level 8.8 8.5-10.1 mg/dl Phosphorus Level 3.8 2.5-4.9 mg/dl Test 07/05/16 05:15 07/05/16 06:49 07/05/16 11:01 07/05/16 12:15 Range/Units White Blood Count 11.82 4.8-10.8 K/uL Red Blood Count 5.11 4.2-5.4 M/uL Hemoglobin 15.7 12.0-16.0 g/dL Hematocrit 44.9 37-47 % Mean Corpuscular Volume 87.9 80-100 fL Mean Corpuscular Hemoglobin 30.7 25-34 pg Mean Corpuscular Hemoglobin Concent 35.0 32-36 g/dl RDW Standard Deviation 45.6 36.4-46.3 fL RDW Coefficient of Variation 14.1 11.5-14.5 % Platelet Count 288 130-400 K/uL Mean Platelet Volume 10.4 7.4-10.4 fL Activated Partial Thromboplast Time 43.8 55.6 21.0-31.0 SECONDS Partial Thromboplastin Ratio 1.7 2.1 Bedside Glucose 189 189 70-90 mg/dl Assessment and Plan Prachi is a 45 year old female with a past medical history of lifestyle controlled hypertension and is an active smoker that presents with NSTEMI and new onset Diabetes with possible DKA 1) NSTEMI - Inferior wall CT with mildly reduced LV function, currently stable with no continued c/p - Troponins - Peak of 3.53, currently trending down - EKG - Inferior Wall Infarct - ECHO - Mild left ventricular systolic dysfunction - Inferior,basal septal,basal posterior hypokinesis - Mild concentric left ventricular hypertrophy - Left ventricular diastolic dysfunction - Cardiology Consult - ECHO and EKG suggest inferior CT - Switch Aspirin to 325mg - Stay on heparin - May require Integrilin if have new event of c/p - Cardiac Catheterization on Wednesday - Heparin - Stop tomorrow at 8am - Metoprolol 25mg PO BID - Lipitor 40mg qHS - Aspirin 325mg daily - Plavix 300mg one dose last night - Acetaminophen 650mm q6h for pain - Nitroglycerin 0.4mg PRN for chest pain - Lipid profile - Triglycerides elevated (316) 2) New Onset Diabetes/ DKA - Lantus 18 units qhs tonight (got 10 units yesterday in the morning as well as at night) - Insulin sliding scale - Q6 Blood Sugar checks - Daily CBC and BMP - Beta-Hydroxybutarate - 2.71 (wnl) - Urine Ketones Positive - Diabetic Education referral placed - C-peptide - awaiting results 3) FEN - Hypokalemia - Replaced - 4.2 (N) - Hypomagnesemia - Replaced - 3.2 (H) - Hypophosphatemia - Replaced - 3.8 (N) 4) Hypertension - Metoprolol 2.5 mg BID - Add JIMMIE inhibitor once condition is stabilized 5) Code Status - Full resuscitation History Resident Physician Supervision Note: I interviewed and examined the patient. Discussed with Dr. Odom and agree with findings and plan as documented in the note. Any exceptions or clarifications are listed here: Dloomy Patient denies any chest pain today, no further runs of ventricular tachycardia on telemetry. Electrolytes have been repleted. Blood glucose is better controlled. Telemetry and vital signs reviewed No acute distress Regular rate and rhythm, no murmurs rubs or gallops Lungs clear to auscultation bilaterally, no wheezes crackles or rhonchi, breathing unlabored No carotid bruits Abdomen soft nontender nondistended positive bowel sounds Extremities no edema, 2+ dorsalis pedis pulses Skin no rashes 45-year-old female with history of obesity, smoking, and hypertension, presents with non-STEMI and new onset diabetes with DKA. Echocardiogram shows hypokinesis of the inferior wall consistent with her inferior wall CT and mildly low LV function with an EF of 40-45%. -Repleted electrolytes and continue watch on telemetry for continued ventricular arrhythmias -Continue heparin drip for at least 48 hours status post non-STEMI and will hold prior to the cardiac cath in the morning -Would go to cardiac cath urgently if has recurrent chest pain or sustained V. tach, otherwise plan for cardiac catheterization on Wednesday -Continue aspirin, statin, heparin drip, beta louis, and nitrates when necessary -Discussed tobacco cessation at length-she would like to try Wellbutrin after discharge -Discussed new diagnosis of diabetes. She is now on long-acting insulin with pre-meal NovoLog-check autoimmune antibodies given her mixed type I and type II picture Documented By: Allison Moody
[2016-07-05] MEDS: INSULIN GLARGINE SOLOSTAR 100 UNITS/ML 3 ML PEN SC SCH (21:00)
[2016-07-05] MEDS: ATORVASTATIN 40 MG TAB PO SCH (21:03)
[2016-07-06] VITALS (18 sets, daily range): BP systolic 113–160; BP diastolic 68–96; PULSE 63–76; TEMP 36.6–36.9; O2SAT 94–100; BMI 35.9
[2016-07-06 06:24] LABS: BASO % 0.3 %; BASO ABS # 0.04 K/uL (0-0.2); COMPLETE YES; EOS % 1.8 %; HEMATOCRIT 43.2 % (37-47); IG% 0.3 %; LYMPH % 31.4 %; LYMPH ABS # 3.72 K/uL (1.2-3.4); MEAN CELL VOLUME 86.7 fL (80-100); MEAN CORPUSCULAR HEMOGLOBIN 30.9 pg (25-34); MEAN CORPUSCULAR HGB CONC 35.6 g/dl (32-36); MEAN PLATELET VOLUME 10.2 fL (7.4-10.4); MONO % 5.6 %; NEUT % 60.6 %; PLATELET COUNT 288 K/uL (130-400); RED BLOOD COUNT 4.98 M/uL (4.2-5.4); WHITE BLOOD COUNT 11.84 K/uL (4.8-10.8)
[2016-07-06 06:41] LABS: PARTIAL THROMBOPLASTIN RATIO 1.9
[2016-07-06 06:45] LABS: BUN/CREATININE RATIO 13.5 (10-20); CALCIUM 8.8 mg/dl (8.5-10.1); CREATININE 0.64 mg/dl (0.60-1.20); MAGNESIUM 1.9 mg/dl (1.8-2.4); POTASSIUM 3.8 mmol/L (3.5-5.1)
[2016-07-06] MEDS: INSULIN ASPART 100 UNITS/ML 3 ML PEN SC SCH ×4 (07:00→21:00)
--- NOTE | 2016-07-06 07:31 | Family Medicine Progress Note ---
Progress Note Date of Service Jul 06, 2016. Subjective Pt evaluation today including: conversation w/ patient, conversation w/ family Patient sitting comfortably in bed. She denies acute overnight events. She does say she experienced chest tightness and flushing on two occasions, but they both occurred during times when she was discussing her pending cath procedure. They were not associated with SOB, nausea or diaphoresis and as such, patient attributes the episodes to anxiety/nervousness. She otherwise slept well, and has had no issues with sleep or diet. She believes she is beginning to understand improved diets habits with her diagnosis of diabetes. In addition, she claims she has not smoked at all since , and plans to abstain permanently after discharge. Constitutional: No chills, No fever, No sweats Respiratory: No cough, No shortness of breath, No wheezing Cardiovascular: No PND, No chest pain, No edema, No orthopnea, No palpitations Abdomen: No constipation, No diarrhea, No nausea, No pain, No vomiting Female : No dysuria Objective Vital Signs Date Time Temp Pulse Resp B/P Pulse Ox O2 Delivery O2 Flow Rate FiO2 07/06/16 04:00 Room Air 07/06/16 03:30 36.9 67 18 113/69 98 Room Air 07/06/16 00:00 Room Air 07/05/16 22:55 37.0 66 18 104/58 99 Room Air 07/05/16 20:00 Room Air 07/05/16 19:20 36.9 83 18 157/106 98 Room Air 07/05/16 16:00 Room Air 07/05/16 14:44 36.9 72 18 141/98 98 Room Air 07/05/16 12:00 Room Air 07/05/16 11:04 37.0 63 20 136/91 96 Room Air 07/05/16 08:19 37.1 83 20 145/102 98 Room Air 07/05/16 08:00 Room Air Physical Exam General Appearance: WD/WN, no apparent distress Eyes: normal inspection, EOMI ENT: hearing grossly normal, pharynx normal Neck: supple, no adenopathy, no JVD Respiratory/Chest: lungs clear, normal breath sounds, no respiratory distress, no accessory muscle use Cardiovascular: regular rate, rhythm, no edema, no JVD, no murmur Abdomen: normal bowel sounds, non tender, soft Extremities: normal inspection, no pedal edema, no calf tenderness Neurologic/Psychiatric: alert, normal mood/affect, oriented x 3 Skin: normal color, warm/dry, no rash Laboratory Results Results Past 24 Hours Test 07/06/16 06:12 07/06/16 07:01 07/06/16 11:19 07/06/16 11:43 Range/Units White Blood Count 11.84 4.8-10.8 K/uL Red Blood Count 4.98 4.2-5.4 M/uL Hemoglobin 15.4 12.0-16.0 g/dL Hematocrit 43.2 37-47 % Mean Corpuscular Volume 86.7 80-100 fL Mean Corpuscular Hemoglobin 30.9 25-34 pg Mean Corpuscular Hemoglobin Concent 35.6 32-36 g/dl Platelet Count 288 130-400 K/uL Mean Platelet Volume 10.2 7.4-10.4 fL Neutrophils (%) (Auto) 60.6 % Lymphocytes (%) (Auto) 31.4 % Monocytes (%) (Auto) 5.6 % Eosinophils (%) (Auto) 1.8 % Basophils (%) (Auto) 0.3 % Neutrophils # (Auto) 7.17 1.4-6.5 K/uL Lymphocytes # (Auto) 3.72 1.2-3.4 K/uL Monocytes # (Auto) 0.66 0.11-0.59 K/uL Eosinophils # (Auto) 0.21 0-0.5 K/uL Basophils # (Auto) 0.04 0-0.2 K/uL RDW Standard Deviation 44.5 36.4-46.3 fL RDW Coefficient of Variation 14.1 11.5-14.5 % Immature Granulocyte % (Auto) 0.3 % Immature Granulocyte # (Auto) 0.04 0.00-0.02 K/uL Activated Partial Thromboplast Time 48.3 21.0-31.0 SECONDS Partial Thromboplastin Ratio 1.9 Sodium Level 140 136-145 mmol/L Potassium Level 3.8 3.5-5.1 mmol/L Chloride Level 107 98-107 mmol/L Carbon Dioxide Level 23 21-32 mmol/L Anion Gap 10.0 3-11 mmol/L Blood Urea Nitrogen 9 7-18 mg/dl Creatinine 0.64 0.60-1.20 mg/dl Est Creatinine Clear Calc Drug Dose 125.3 ml/min Estimated GFR () 125.8 Estimated GFR (Non- 108.5 BUN/Creatinine Ratio 13.5 10-20 Random Glucose 184 70-99 mg/dl Calcium Level 8.8 8.5-10.1 mg/dl Phosphorus Level 5.0 2.5-4.9 mg/dl Magnesium Level 1.9 1.8-2.4 mg/dl Bedside Glucose 157 70-90 mg/dl Kaolin Activated Coagulation Time 224 245 94-140 SECONDS Test 07/06/16 16:06 07/06/16 20:37 Range/Units Bedside Glucose 148 141 70-90 mg/dl Assessment and Plan 45 year old female who is an active smoker with lifestyle-controlled hypertension that presents with NSTEMI and new onset diabetes NSTEMI - EKG consistent with inferior wall infarct, troponin peak of 3.53, Echo showed Mild left ventricular systolic dysfunction with concentric hypertrophy. Inferior, basal septal, basal posterior hypokinesis present. Cardiology Consulted - recs appreciated. Right heart cathed on 07/06 with placement of 2 THELMA in RCA. - Continue metoprolol 25mg PO BID, atorvastatin 40mg qHS, aspirin 325mg daily - Started Plavix 75mg daily, and plans to start Lisinopril 10mg qAM tomorrow - Acetaminophen 650mm q6h PRN pain and Nitroglycerin 0.4mg PRN for chest pain New Onset Diabetes - Urine ketones positive, serum beta-hydroxybutarate - 2.71 ( wnl). HBA1c 11.6 - Lantus 18 units qhs tonight + ISS - Q6 blood sugar checks - Daily CBC and BMP - Diabetic Education referral placed - C-peptide, Islet antibodies, insulin antibody results pending Electrolytes - Hypokalemia, hypomagnesemia, hypophosphatemia currently WNL Hypertension - Metoprolol 2.5 mg BID - Add Lisinopril tomorrow Code Status - Full resuscitation Resident Physician Supervision Note: I interviewed and examined the patient. Discussed with Dr. Rocha and agree with findings and plan as documented in the note. Any exceptions or clarifications are listed here: None Documented By: Matthew Solomon feeling OK post cath. discussed lifestyle - LOTS of soda, sweet tea. actually had been slowly working on healthier lifestyle already, and is happy to quit smoking. was calling to establish w preferred PCP (Flako Monroe in [facility] ) as we entered the room vitals noted nad breathing unlabored no pallor or icterus. cath and labs reviewed CAD w NSTEMI -s/p cath and stenting -med management - likely can add ACEi tomorrow -extensively discussed lifestyle change DM - new onset -strongly suspect type 2 -discussed current concern of type 1 vs type 2 with pt,and will likely have to be discharged on insulin until situation is finally clearly defined (once Cpeptide and antibodies are back) -with currently lifestyle though, would expect much more severe metabolic derangements wtih her degree of sugar intake and no insulin if she were a type 1 ; lifestyle fits type 2, as does metabolic syndrome - central obesity, HTN, high TG/low HDL. otherwise as above Continued [facility] stay due to: other Discharge planning: home Resident Tracking Resident Involvement: Resident Care Provided Care Provided: Adult Hospital Medicine
[2016-07-06] MEDS: CALCIUM CARBONATE 1250MG TAB PO SCH ×2 (07:40→20:27)
[2016-07-06] MEDS: METOPROLOL TARTRATE 25 MG TAB PO SCH ×2 (07:40→20:27)
[2016-07-06] MEDS: ASPIRIN 325 MG ECTAB PO SCH (07:40)
[2016-07-06 08:16] LABS: ESTIMATED AVERAGE GLUCOSE 286 mg/dl; HA1C FLAG Normal (Normal)
--- NOTE | 2016-07-06 10:05 | Cardiology Follow-Up ---
Subjective Subjective Date of Service: Jul 06, 2016. Pt evaluation today including: conversation w/ patient, conversation w/ family , physical exam, chart review, lab review, review of studies, review of inpatient medication list Problem List No recurrent chest pain. No other new cardiac symptoms. Up walking room without symptoms. No arrhythmias on telemetry Review of Systems Constitutional: No fever Respiratory: No cough, No shortness of breath Cardiac: No chest pain, No palpitations Abdomen: No nausea, No pain, No vomiting Female : No problem reported Neurologic: No numbness/tingling Heme: No abnormal bleeding/bruising, No clotting problems Endo: No fatigue Skin: No problem reported Objective Vital Signs Last Vital Signs Documentation Date Time Temp Pulse Resp B/P Pulse Ox O2 Delivery O2 Flow Rate FiO2 07/06/16 08:00 98 Room Air 07/06/16 07:56 36.6 76 20 120/93 Physical Exam: General Appearance: WD/WN, no apparent distress Neck: supple Respiratory/Chest: lungs clear, normal breath sounds Cardiovascular: regular rate, rhythm, no edema, no murmur Abdomen: normal bowel sounds, non tender, soft Extremities: no pedal edema, no calf tenderness Neurologic/Psychiatric: alert, normal mood/affect, oriented x 3 Skin: no rash Assessment and Plan 1. NSTEMI-- troponin peaked, chest pain free 2. Newly diagnosed DM -- on insulin 3. HTN-- reasonably controlled Will proceed with cardiac catheterization later today. Further recommendations pending findings. Continue ASA/statin, beta-louis Medications: Current Inpatient Medications Medications (Trade) Dose Ordered Sig/Shana Route Start Time Stop Time Status Last Admin Dose Admin Acetaminophen (Tylenol Tab) 650 mg Q4H PRN PO 07/03/16 19:45 08/02/16 19:44 07/04/16 15:15 650 MG Al Hydrox/Mg Hydrox/Simethicone (Maalox Max Susp) 15 ml Q4H PRN PO 07/03/16 19:45 08/02/16 19:44 Magnesium Hydroxide (Milk Of Magnesia Susp) 30 ml Q12H PRN PO 07/03/16 19:45 08/02/16 19:44 Zolpidem Tartrate (Ambien Tab) 5 mg HSZ PRN PO 07/03/16 19:45 08/02/16 19:44 Ondansetron HCl (Zofran Inj) 4 mg Q6H PRN IV 07/03/16 19:45 08/02/16 19:44 Nitroglycerin (Nitrostat Tab) 0.4 mg UD PRN SL 07/03/16 19:45 08/02/16 19:44 Morphine Sulfate (MoRPHine SULFATE INJ) 2 mg Q30M PRN IV 07/03/16 19:45 07/17/16 19:44 Polyethylene (Miralax Powder Packet) 17 gm DAILY PRN PO 07/03/16 19:45 08/02/16 19:44 Glucose (Glucose 40% Gel) 15-30 GRAMS 15 GRAMS... UD PRN PO 07/03/16 20:45 08/02/16 20:44 Glucose (Glucose Chew Tab) 4-8 Tablets 4 Tabl... UD PRN PO 07/03/16 20:45 08/02/16 20:44 Dextrose (Dextrose 50% 50ML Syringe) 25-50ML OF 50% DW IV FOR... UD PRN IV 07/03/16 20:45 08/02/16 20:44 Glucagon (Glucagon Inj) 1 mg UD PRN SQ 07/03/16 20:45 08/02/16 20:44 Atorvastatin Calcium (Lipitor Tab) 40 mg HS PO 07/04/16 21:00 08/03/16 20:59 07/05/16 21:03 40 MG Calcium Carbonate (oS-Chicho 500 TAB) 1,250 mg BID PO 07/04/16 09:00 08/03/16 08:59 07/06/16 07:40 1,250 MG Metoprolol Tartrate (Lopressor Tab) 25 mg BID PO 07/04/16 21:00 08/03/16 20:59 07/06/16 07:40 25 MG Aspirin (Ecotrin Tab) 325 mg QAM PO 07/05/16 09:00 08/04/16 08:59 07/06/16 07:40 325 MG Insulin Aspart SLIDING SCALE G... ACHS SC 07/04/16 11:00 08/03/16 10:59 07/05/16 21:00 1 UNITS Sodium Chloride (Nss 1000ml) 1,000 ml @ 97 mls/hr [id number] IV 07/06/16 00:00 08/05/16 00:00 07/06/16 00:00 97 MLS/HR Insulin Glargine (Lantus Solostar Pen) 18 unit HS SC 07/05/16 21:00 08/04/16 20:59 07/05/16 21:00 18 UNIT Lab Results: 07/06/16 06:12 Red Blood Count 4.98, Mean Corpuscular Volume 86.7, Mean Corpuscular Hemoglobin 30.9, Mean Corpuscular Hemoglobin Concent 35.6, Mean Platelet Volume 10.2, Neutrophils (%) (Auto) 60.6, Lymphocytes (%) (Auto) 31.4, Monocytes (%) (Auto) 5.6, Eosinophils (%) (Auto) 1.8, Basophils (%) (Auto) 0.3, Neutrophils # (Auto) 7.17, Lymphocytes # (Auto) 3.72, Monocytes # (Auto) 0.66, Eosinophils # (Auto) 0.21, Basophils # (Auto) 0.04 07/06/16 06:12 Test 07/06/16 06:12 07/06/16 07:01 White Blood Count 11.84 K/uL (4.8-10.8) Red Blood Count 4.98 M/uL (4.2-5.4) Hemoglobin 15.4 g/dL (12.0-16.0) Hematocrit 43.2 % (37-47) Mean Corpuscular Volume 86.7 fL (80-100) Mean Corpuscular Hemoglobin 30.9 pg (25-34) Mean Corpuscular Hemoglobin Concent 35.6 g/dl (32-36) Platelet Count 288 K/uL (130-400) Mean Platelet Volume 10.2 fL (7.4-10.4) Neutrophils (%) (Auto) 60.6 % Lymphocytes (%) (Auto) 31.4 % Monocytes (%) (Auto) 5.6 % Eosinophils (%) (Auto) 1.8 % Basophils (%) (Auto) 0.3 % Neutrophils # (Auto) 7.17 K/uL (1.4-6.5) Lymphocytes # (Auto) 3.72 K/uL (1.2-3.4) Monocytes # (Auto) 0.66 K/uL (0.11-0.59) Eosinophils # (Auto) 0.21 K/uL (0-0.5) Basophils # (Auto) 0.04 K/uL (0-0.2) RDW Standard Deviation 44.5 fL (36.4-46.3) RDW Coefficient of Variation 14.1 % (11.5-14.5) Immature Granulocyte % (Auto) 0.3 % Immature Granulocyte # (Auto) 0.04 K/uL (0.00-0.02) Activated Partial Thromboplast Time 48.3 SECONDS (21.0-31.0) Partial Thromboplastin Ratio 1.9 Anion Gap 10.0 mmol/L (3-11) Est Creatinine Clear Calc Drug Dose 125.3 ml/min Estimated GFR () 125.8 Estimated GFR (Non- 108.5 BUN/Creatinine Ratio 13.5 (10-20) Calcium Level 8.8 mg/dl (8.5-10.1) Phosphorus Level 5.0 mg/dl (2.5-4.9) Magnesium Level 1.9 mg/dl (1.8-2.4) Bedside Glucose 157 mg/dl (70-90)
[2016-07-06] MEDS: SODIUM CHLORIDE 0.9% 1000ML 1,000 ML IV SCH ×4 (10:27→22:55)
[2016-07-06] MEDS ORDERED: HEPARIN SOD (PORCINE) 1000 UNIT/ML 10 ML VIAL ONE ×2 (10:54→12:32)
[2016-07-06] MEDS ORDERED: NiCARDipine HCL INJ 2.5 MG/ML 10 ML AMP ONE (10:54)
[2016-07-06] MEDS ORDERED: FENTANYL CITRATE INJ 50 MCG/1 ML 2 ML VIAL ONE (10:55)
[2016-07-06] MEDS ORDERED: NITROGLYCERIN/D5W 100MCG/ML 20ML SYR ONE (10:55)
[2016-07-06] MEDS ORDERED: MIDAZOLAM HCL 1 MG/ML 2ML VIAL ONE (10:55)
[2016-07-06] MEDS ORDERED: CLOPIDOGREL BISULFATE 300 MG TAB PO ONE (12:21)
[2016-07-06] MEDS ORDERED: ACETAMINOPHEN 325 MG TAB PO PRN (12:45)
--- NOTE | 2016-07-06 12:53 | Procedure Note ---
Pre-Mod Sedation Assessment General Date of Moderate Sedation: Jul 06, 2016. Vital Signs: Vital Signs Past 12 Hours Date Time Temp Pulse Resp B/P Pulse Ox O2 Delivery O2 Flow Rate FiO2 07/06/16 12:45 36.8 74 18 124/68 94 Room Air 74 74 07/06/16 12:27 59 16 136/96 97 Room Air 07/06/16 12:22 58 18 123/88 97 Room Air 07/06/16 12:17 57 18 126/92 98 Room Air 07/06/16 12:12 57 18 124/83 100 Nasal Cannula 3 07/06/16 08:00 98 Room Air 07/06/16 07:56 36.6 76 20 120/93 98 Room Air 07/06/16 04:00 Room Air 07/06/16 03:30 36.9 67 18 113/69 98 Room Air Review Cardiovascular: regular rate, rhythm, no edema Abdomen: normal bowel sounds, non tender, soft Lungs: chest non-tender, lungs clear, normal breath sounds Pre-Sedation Airway Assessment Oral Cavity: WNL Able to Visualize Vocal Cords: No Short Thick Neck: No Hx of Sleep Apnea: No Smoking Status: Current Every Day Smoker Mallampati Classification: Class III ASA Classification: Class II Procedure Planning Contraindications-for Mod Sed: None Yes Notes The planned sedation has been discussed with the patient and consent obtained. I have identified the patient, determined the appropriateness of sedation and have assessed the patient immediately prior to the procedure. All medicine(s) and interventions are by my order.
--- NOTE | 2016-07-06 12:54 | Procedure Note ---
Post-Mod Sedation Assessment General Date of Moderate Sedation Jul 06, 2016. Vital Signs: Vital Signs Past 12 Hours Date Time Temp Pulse Resp B/P Pulse Ox O2 Delivery O2 Flow Rate FiO2 07/06/16 12:45 36.8 74 18 124/68 94 Room Air 74 74 07/06/16 12:27 59 16 136/96 97 Room Air 07/06/16 12:22 58 18 123/88 97 Room Air 07/06/16 12:17 57 18 126/92 98 Room Air 07/06/16 12:12 57 18 124/83 100 Nasal Cannula 3 07/06/16 08:00 98 Room Air 07/06/16 07:56 36.6 76 20 120/93 98 Room Air 07/06/16 04:00 Room Air 07/06/16 03:30 36.9 67 18 113/69 98 Room Air Review - Discharge Criteria Vital Signs Stable: Yes Alert/Oriented/Conversant: Yes Returned to Baseline Mental St: Yes Nausea Absent/Minimal: Yes Pain/Discomfort/Absent/Minimal: Yes Normal/Baseline Respirations: Yes Active Bleeding?: No Pt Received D/C Instructions: N/A Specific Proced. D/C Criteria Distal Pulses Present (Cardiac: Yes Groin site assessed-Card Cath: N/A Voided Prior To Discharge: N/A Discharged Patients Adult Escort/Transportation: Yes
--- NOTE | 2016-07-06 14:18 | Cardiac Catheterization ---
Procedure Note Procedure Date Jul 06, 2016. Pre-Procedure Diagnosis Non STEMI AUC Score 8 Post-Procedure Diagnosis Severe CAD, Successful PCI, Normal Intracardiac Pressures Procedure(s) Performed Coronary Angiography, Left Heart Cath, Drug Eluting Stent Director Channel Dr. Miller Senior Outside Sales Representative(s) Duong Estimated Blood Loss 20 Medication(s) Fentanyl, Heparin, Nicardipine, Nitroglycerin, Versed, Lidocaine 1% Summary of Findings Indication: NSTEMI Access: 6Fr Right radial artery Catheters: [place], JR 4 guide Findings: LM - Luminal irregularities LAD - 30-40% focal proximal, 40% early-mid segment focal stenosis, mild mid, apical disease. LAD wraps around apex with sluggish DUKE 2 flow. Circumflex - Luminal irregularities. Mild focal disease in OM2. RCA - Dominant, 50-60% ostial (with catheter dampening), diffuse stenosis from proximal to mid segment up to 99%. Distal luminal irregularities in PDA, PLB. LVEDP - 8 -- PCI -- Antithrombotic therapy: Heparin, Clopidogrel Procedure: RCA cannulated with JR 4 guide BMW wire passed across lesion into distal vessel Proximal-mid lesion predilated with 2.5 compliant balloon Dilated lesion stented with 2.5 x 33 Xience THELMA Stent post-dilated with 2.75 noncompliant balloon IC vasodilators administered for spasm Persistent disease in ostial segment and decision made to stent ostial segment. 2.75 x 18 Xience THELMA overlapped with prior stent and placed at ostium Post-dilated with stent balloon, 2.75 NC balloon. Post procedure DUKE 3 flow, stent well expanded with minimal residual stenosis and no apparent cardiac complications. Arterial Closure: TR Band Summary: 1. Severe single vessel coronary artery disease - Diffuse proximal-mid RCA disease up to 99% stenosis - mild-moderate nonobstructive disease in proximal to mid LAD 2. Normal intracardiac filling pressure 3. Successful PCI of ostial RCA to mid segment with 2 overlapping drug-eluting stents (2.75 x 18, 2.5 x 33 Xience THELMA). 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 Hemodynamics Rest Ao: 113/72/90 Final Ao: 130/68/95 LV: 117/8 Recommendations PCI without planned CABG Specimens None Radiation Exposure (mGy) 6195 (Patient counseled on signs and sxs of radiation toxicity) Contrast (mls) 205 Visi Fluids (cc crystalloids) 150 Drains None Anesthesia Moderate Procedural Complication(s) None Disposition PCU ACC Data Cardiac Status Clinical evaluation leading to the procedure CAD Presntation: Non STEMI Anginal Classification: CCS IV Heart Failure: No, NYHA Class: CCS I Cardiogenic Shock w/in 24Hrs: No Cardiac Arrest w/in 24Hrs: No Imaging studies past 6 months: Yes Stress studies past 6 months: No Standard Exercise Stress Test: No Stress Echocardiogram: No Stress Testing w/SPECT MPI: No Cardiac CTA: No Coronary Anatomy Dominant: Right Left Main (% Stenosis): Normal LAD (% Stenosis): Proximal (40), Mid (40) Circumflex (% Stenosis): Normal RCA (% Stenosis): Ostial (55), Proximal (99) Diagnostic Physician's Name: Álvaro Miller MD Status: Elective Closure Device Percutaneous Entry Location: Radial Closure Device: Radial Band Recommendations: PCI without planned CABG PCI Indication: PCI for high risk Non-STEMI Lesion Segment Name: proximal RCA Culprit Artery: Yes Stenosis Prior to Rx (%): 99 Chronic Total Occlusion: No IVUS: No FFR: No Pre-Procedure DUKE Flow: 3 Previously Treated Lesion: No Lesion Complexity: High/C Lesion Length (mm): 45 Thrombus Present: No Bifurcation Lesion: No Guidewire Across Lesion: Yes Guidewire: Stenosis Post-Procedure (%): 0 Post-Procedure DUKE Flow: 3 Device(s) Deployed: Yes Intraprocedure Events Significant Dissection: No Perforation: No
[2016-07-06] MEDS: ATORVASTATIN 40 MG TAB PO SCH (20:27)
[2016-07-06] MEDS: ACETAMINOPHEN 325 MG TAB PO PRN (20:35)
[2016-07-06] MEDS: INSULIN GLARGINE SOLOSTAR 100 UNITS/ML 3 ML PEN SC SCH (21:00)
[2016-07-07 03:00] VITALS: BP 122/70; PULSE 70; TEMP 36.6; O2SAT 98
[2016-07-07] MEDS: SODIUM CHLORIDE 0.9% 1000ML 1,000 ML IV SCH (06:53)
--- NOTE | 2016-07-07 07:08 | Cardiology Follow-Up ---
Subjective Subjective Date of Service: Jul 07, 2016. Pt evaluation today including: conversation w/ patient, physical exam, chart review, lab review, review of studies, review of inpatient medication list Additional Details: feeling well. no new complaints this AM. No chest pain, shortness of breath. Tele reviewed -- no events. Review of Systems Constitutional: No fever Respiratory: No cough, No shortness of breath, No wheezing Cardiac: No PND, No chest pain, No edema, No orthopnea, No palpitations Abdomen: No diarrhea, No nausea, No pain, No vomiting Female : No dysuria Neurologic: No numbness/tingling Heme: No abnormal bleeding/bruising, No clotting problems Endo: No fatigue Skin: No problem reported Objective Vital Signs Last Vital Signs Documentation Date Time Temp Pulse Resp B/P Pulse Ox O2 Delivery O2 Flow Rate FiO2 07/07/16 04:00 Room Air 07/07/16 03:00 36.6 70 18 122/70 98 07/06/16 18:37 2.0 Physical Exam: General Appearance: no apparent distress ENT: hearing grossly normal, pharynx normal Neck: supple, no adenopathy, no JVD Respiratory/Chest: lungs clear, no respiratory distress Cardiovascular: regular rate, rhythm, no edema, no JVD, no murmur Abdomen: normal bowel sounds, non tender, soft Extremities: no pedal edema, no calf tenderness, + pertinent finding (Mimimal tenderness at right artery access site. No hematoma. Intact distal pulse/ senstation) Neurologic/Psychiatric: alert, normal mood/affect, oriented x 3 Skin: normal color, warm/dry, no rash Assessment and Plan 1. NSTEMI s/p PCI with DESx2 to ostial to mid RCA 2. Mild to moderate nonobstructive LAD disease 3. Newly diagnosed DM -- on insulin 4. HTN-- reasonably controlled Patient doing well post PCI yesterday with no recurrent symptoms or access site complications. From a cardiac standpoint OK for discharge today. Continue DAPT with ASA/Clopidogrel for at least 1 year (would change to ASA 81 going forward). Continue statin, beta-louis, JIMMIE Smoking cessation Follow-up with me in 2-3 weeks. Continued [facility] stay due to: other Discharge planning: home Medications: Current Inpatient Medications Medications (Trade) Dose Ordered Sig/Shana Route Start Time Stop Time Status Last Admin Dose Admin Acetaminophen (Tylenol Tab) 650 mg Q4H PRN PO 07/03/16 19:45 08/02/16 19:44 07/06/16 20:35 650 MG Al Hydrox/Mg Hydrox/Simethicone (Maalox Max Susp) 15 ml Q4H PRN PO 07/03/16 19:45 08/02/16 19:44 Magnesium Hydroxide (Milk Of Magnesia Susp) 30 ml Q12H PRN PO 07/03/16 19:45 08/02/16 19:44 Zolpidem Tartrate (Ambien Tab) 5 mg HSZ PRN PO 07/03/16 19:45 08/02/16 19:44 Ondansetron HCl (Zofran Inj) 4 mg Q6H PRN IV 07/03/16 19:45 08/02/16 19:44 Nitroglycerin (Nitrostat Tab) 0.4 mg UD PRN SL 07/03/16 19:45 08/02/16 19:44 Morphine Sulfate (MoRPHine SULFATE INJ) 2 mg Q30M PRN IV 07/03/16 19:45 07/17/16 19:44 Polyethylene (Miralax Powder Packet) 17 gm DAILY PRN PO 07/03/16 19:45 08/02/16 19:44 Glucose (Glucose 40% Gel) 15-30 GRAMS 15 GRAMS... UD PRN PO 07/03/16 20:45 08/02/16 20:44 Glucose (Glucose Chew Tab) 4-8 Tablets 4 Tabl... UD PRN PO 07/03/16 20:45 08/02/16 20:44 Dextrose (Dextrose 50% 50ML Syringe) 25-50ML OF 50% DW IV FOR... UD PRN IV 07/03/16 20:45 08/02/16 20:44 Glucagon (Glucagon Inj) 1 mg UD PRN SQ 07/03/16 20:45 08/02/16 20:44 Atorvastatin Calcium (Lipitor Tab) 40 mg HS PO 07/04/16 21:00 08/03/16 20:59 07/06/16 20:27 40 MG Calcium Carbonate (oS-Chicho 500 TAB) 1,250 mg BID PO 07/04/16 09:00 08/03/16 08:59 07/06/16 20:27 1,250 MG Metoprolol Tartrate (Lopressor Tab) 25 mg BID PO 07/04/16 21:00 08/03/16 20:59 07/06/16 20:27 25 MG Aspirin (Ecotrin Tab) 325 mg QAM PO 07/05/16 09:00 08/04/16 08:59 07/06/16 07:40 325 MG Insulin Aspart (novoLOG ASPART) SLIDING SCALE G... ACHS SC 07/04/16 11:00 08/03/16 10:59 07/06/16 17:11 9 UNITS Insulin Glargine 18 unit 18 unit HS SC 07/05/16 21:00 08/04/16 20:59 07/06/16 21:00 18 UNIT Sodium Chloride (Nss 1000ml) 1,000 ml @ 125 mls/hr Q8H IV 07/06/16 14:45 08/05/16 14:44 07/07/16 06:53 125 MLS/HR Clopidogrel Bisulfate (plAVix TAB) 75 mg QAM PO 07/07/16 09:00 08/06/16 08:59 Acetaminophen (Tylenol Tab) 650 mg Q4H PRN PO 07/06/16 12:45 08/05/16 12:44 Lisinopril (Zestril Tab) 10 mg QAM PO 07/07/16 09:00 08/06/16 08:59 Lab Results: Test 07/06/16 11:43 07/07/16 04:44 07/07/16 06:39 Kaolin Activated Coagulation Time 245 SECONDS (94-140) Bedside Glucose 145 mg/dl (70-90)
--- NOTE | 2016-07-07 07:19 | Family Medicine Progress Note ---
Progress Note Date of Service Jul 07, 2016. Subjective Pt evaluation today including: conversation w/ patient Objective Vital Signs Date Time Temp Pulse Resp B/P Pulse Ox O2 Delivery O2 Flow Rate FiO2 07/07/16 04:00 Room Air 07/07/16 03:00 36.6 70 18 122/70 98 Room Air 07/07/16 00:00 Room Air 07/06/16 23:35 36.6 63 18 120/75 98 Room Air 07/06/16 20:00 Room Air 07/06/16 19:39 36.8 75 20 160/96 96 Room Air 07/06/16 18:37 36.8 68 16 122/80 98 Room Air 2.0 07/06/16 17:37 36.9 68 20 129/94 97 Room Air 2.0 07/06/16 16:37 36.9 68 20 129/94 97 Room Air 2.0 07/06/16 16:00 98 Room Air 07/06/16 15:55 36.9 72 20 133/94 100 Room Air 07/06/16 15:37 36.9 71 20 128/70 97 Nasal Cannula 2.0 71 71 07/06/16 14:37 36.9 71 20 128/70 97 Nasal Cannula 2.0 71 71 07/06/16 14:07 36.9 68 20 120/70 98 Nasal Cannula 2.0 68 68 07/06/16 13:37 36.8 74 20 128/70 98 Nasal Cannula 2.0 74 74 07/06/16 13:22 36.7 70 20 128/70 98 Nasal Cannula 2.0 70 70 07/06/16 13:07 36.8 74 18 128/72 97 Nasal Cannula 2.0 74 74 07/06/16 12:52 36.8 74 18 128/72 97 Nasal Cannula 2.0 74 74 07/06/16 12:45 36.8 74 18 124/68 94 Room Air 74 74 07/06/16 12:27 59 16 136/96 97 Room Air 07/06/16 12:22 58 18 123/88 97 Room Air 07/06/16 12:17 57 18 126/92 98 Room Air 07/06/16 12:12 57 18 124/83 100 Nasal Cannula 3 07/06/16 08:00 98 Room Air 07/06/16 07:56 36.6 76 20 120/93 98 Room Air Resident Tracking Resident Involvement: Resident Care Provided Care Provided: Adult Hospital Medicine
[2016-07-07 07:23] LABS: BASO % 0.3 %; BASO ABS # 0.03 K/uL (0-0.2); COMPLETE YES; EOS % 1.9 %; HEMATOCRIT 45.3 % (37-47); IG% 0.2 %; LYMPH % 23.6 %; LYMPH ABS # 2.54 K/uL (1.2-3.4); MEAN CORPUSCULAR HGB CONC 34.9 g/dl (32-36); MEAN PLATELET VOLUME 10.5 fL (7.4-10.4); MONO % 6.4 %; NEUT % 67.6 %; PLATELET COUNT 273 K/uL (130-400); RED BLOOD COUNT 5.09 M/uL (4.2-5.4); WHITE BLOOD COUNT 10.77 K/uL (4.8-10.8)
[2016-07-07 07:25] VITALS: BP 128/79; PULSE 68; TEMP 36.9; O2SAT 100
[2016-07-07 07:37] LABS: PARTIAL THROMBOPLASTIN RATIO 1.1
[2016-07-07 07:43] LABS: BUN/CREATININE RATIO 11.7 (10-20); CALCIUM 8.7 mg/dl (8.5-10.1); CREATININE 0.65 mg/dl (0.60-1.20); POTASSIUM 3.8 mmol/L (3.5-5.1)
[2016-07-07] MEDS: INSULIN ASPART 100 UNITS/ML 3 ML PEN SC SCH ×2 (07:49→11:45)
[2016-07-07 08:00] VITALS: O2SAT 98
[2016-07-07] MEDS ORDERED: ASPIRIN 81 MG ECTAB PO SCH (09:00)
[2016-07-07] MEDS ORDERED: LISINOPRIL 10 MG TAB PO SCH (09:00)
[2016-07-07] MEDS ORDERED: CLOPIDOGREL BISULFATE 75 MG TAB PO SCH (09:00)
[2016-07-07] MEDS: CALCIUM CARBONATE 1250MG TAB PO SCH (10:25)
[2016-07-07] MEDS: METOPROLOL TARTRATE 25 MG TAB PO SCH (10:25)
[2016-07-07] MEDS ORDERED: FLUCONAZOLE 50 MG TAB PO ONE (10:45)
[2016-07-07] MEDS ORDERED: LPT40 PO (11:38)
[2016-07-07] MEDS ORDERED: LPR25 PO (11:38)
[2016-07-07] MEDS ORDERED: LSN10 PO (11:38)
[2016-07-07] MEDS ORDERED: ASPEC81 PO (11:38)
[2016-07-07] MEDS ORDERED: PLV75 PO (11:38)
--- NOTE | 2016-07-07 11:46 | Discharge Instructions ---
Discharge Instructions Date of Service Jul 07, 2016. Admission Reason for Admission: Nstemi Discharge Discharge Diagnosis / Problem: Inferior wall myocardial infarction, now onset diabetes Discharge Goals Goal(s): Improve disease control, Learn about illness, Diagnostic testing, Therapeutic intervention Activity Recommendations Activity Limitations: as noted below Lifting Limitations: gradually increase as tolerated Exercise/Sports Limitations: as tolerated Shower/Bathe: no limitations Driving or Machine Use: no limitations Full activity may eventually be resumed. However, for the next week or so, it is advisable to rest, take it easy. Gradually increase exercise as tolerated. Instructions / Follow-Up Instructions / Follow-Up Heart attack In hospital, you underwent a right heart catheterization once your troponin ( heart protein), EKG (electrical pattern), and echo (heart ultra sound) showed evidence of damage to the heart. During the procedure a drug-eluting stent was placed which helped to open a blocked artery leading to the heart. After the procedure, you were started on medication that will help keep your heart healthy. Please continue the medications, unless otherwise discussed with your patient appointment coordinator or primary care provider: aspirin and clopidogrel (Plavix) daily to protect your stent, atorvastatin (Lipitor) daily to decrease/control fatty buildup in the vessels, metoprolol twice daily and lisinopril once daily to control blood pressure and reduce heart and kidney strain/demand. (Exact doses are listed elsewhere on your discharge summary). You will follow up with your patient appointment coordinator, Dr. Miller in 2-3 weeks. In the meantime, please continue with cardiac rehabilitation. Lisinopril may affect the kidneys negatively in a very small population. See your PCP in 1 week to recheck your kidney function to make sure your levels continue to remain stable. Diabetes On presentation, it was found that your sugars were high. In looking at labs, there was some question of whether or not this is late onset type 1 or typical type 2 diabetes. Labs that would confirm this are still pending on discharge. However, based on your history, it is likely you are type 2 diabetic. 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 You were started on Lantus 18 units every night just in case you are type 1, please continue this on discharge. Once your PCP receives the pending results, he may discontinue the Lantus and start a medication called metformin, if this is appropriate. Lifestyle Continue to eat healthy (lots of fruits and vegetable), reduce carbohydrate intake and completely cut out sugary drinks such as soda and sweet tea, as these cause increased blood sugar. They are also not ideal for the heart either. Reducing the sugar saturation caused by intake of these will help to decrease insulin resistance in your body, and hopefully will mean that you will need low doses of diabetes medication. Activity is highly recommended. For the first week or two, rest and light activity only is recommended, but gradually increase this as tolerated. Your goal will be to get 30 min of activity that increases your heart rate at least every other day (~4-5x per week). Eventually, your ability to do more vigorous exercise is possible if you desire, but it would be advisable to speak with your patient appointment coordinator or PCP prior to doing so. Smoking cessation is a huge part of your [facility] health benefits, so say strong even when it's hard. There are lots of behavioural changes you can make which were discussed with you during admission. If you need more tips or support , your PCP would be happy to advise. In [facility], you have been prescribed buproprion (Wellbutrin). Start by taking 150mg once daily for 3 days; if you are tolerating this well increase to 150mg twice daily (max dose 300mg daily), which you will continue for ~7-12 weeks, or more/less depending on how you are doing and as discussed with your PCP. Thank you for allowing us to participate in your care. Current Hospital Diet Patient's current hospital diet: AHA Diet (Heart Healthy), Diabetes Type 2 Diet Discharge Diet Recommended Diet: AHA Diet (Heart Healthy), Diabetes Type 2 Diet Procedures Procedures Performed: Drug-eluting stent placement Pending Studies Studies pending at discharge: yes List of pending studies: Islet cell antibodies, anti-KELSI 65 antibody, insulin autoantibody Laboratory Results Hemoglobin A1c Test 07/05/16 05:15 Range/Units Estimated Average Glucose 286 mg/dl Hemoglobin A1c 11.6 H 4.5-5.6 % Lipid Panel Test 07/04/16 07:10 Range/Units Triglycerides Level 316 H 0-150 mg/dl Cholesterol Level 182 0-200 mg/dl HDL Cholesterol 28 mg/dl Cholesterol/HDL Ratio 6.5 LDL Cholesterol, Calculated 91 mg/dl Medical Emergencies . Who to Call and When: Medical Emergencies: If at any time you feel your situation is an emergency, please call 911 immediately. . Non-Emergent Contact Non-Emergency issues call your: Primary Care Provider, Case Management Manager . . "Provider Documentation" section prepared by Brynn Rocha. VTE Core Measure Inpt VTE Proph given/why not?: Other Anticoagulation
[2016-07-07 12:00] VITALS: O2SAT 98
[2016-07-07 12:34] VITALS: BP 130/84; PULSE 72; TEMP 36.9; O2SAT 97
[2016-07-07] MEDS ORDERED: INSDGIPEN SC (13:35)
[2016-07-07 13:56] VITALS: Ht 162.6 cm; Wt 96.6 kg
[2016-07-07] MEDS ORDERED: BUPR-79 PO ×2 (14:56→14:57)
[2016-07-07 15:21] VITALS: BP 130/84; PULSE 72; TEMP 36.9; O2SAT 97
--- NOTE | 2016-07-07 20:24 | Discharge Summary ---
Discharge Summary Date of Service Jul 07, 2016. Discharge Summary Admission Date: Jul 03, 2016 at 19:35 Discharge Date: Jul 07, 2016 Discharge Disposition: Home Principal Diagnosis: NSTEMI, Diabetes Medication Reconciliation New Medications: Bupropion (Wellbutrin Sr) 150 Mg Ertab 150 MG PO BID for 30 Days, #60 TAB 3 Refills Aspirin (Aspirin EC Low Dose) 81 Mg Ectab 81 MG PO QAM for 30 Days, #30 TAB 3 Refills Atorvastatin (Atorvastatin Calcium) 40 Mg Tab 40 MG PO HS for 30 Days, #30 TAB 3 Refills Clopidogrel Bisulfate (Clopidogrel) 75 Mg Tab 75 MG PO QAM for 30 Days, #30 TAB 3 Refills Insulin Glargine (Lantus Solostar) 100 Unit/Ml Inj 18 UNIT SC HS, #1 PEN Lisinopril (Zestril) 10 Mg Tab 10 MG PO QAM for 30 Days, #30 TAB 3 Refills Metoprolol Tartrate (Lopressor) 25 Mg Tab 25 MG PO BID for 30 Days, #60 TAB 3 Refills Discharge Exam Patient sitting comfortably out of bed, she denies acute overnight events. She has not had any further episodes of chest tightness, SOB or flushing. She has been sleeping well and tolerating diet. She has had cravings for cigarettes, but remains determined to abstain. A long discussion was had regarding behavioural modifications that may be helpful, in conjunction with medication. Review of Systems: Constitutional: No chills, No fever Respiratory: No cough, No shortness of breath, No wheezing Cardiovascular: No chest pain, No edema, No palpitations Abdomen: No constipation, No diarrhea, No nausea, No pain, No vomiting Genitourinary - Female: + vaginal discharge, + vaginal itching, No dysuria, No hematuria, No urinary frequency, No urinary incontinence, No urinary retention, No urinary urgency Physical Exam: General Appearance: WD/WN, no apparent distress Eyes: normal inspection, EOMI ENT: hearing grossly normal, pharynx normal Neck: supple, no adenopathy, no JVD Respiratory/Chest: lungs clear, normal breath sounds, no respiratory distress, no accessory muscle use Cardiovascular: regular rate, rhythm, no murmur, normal peripheral pulses Abdomen / GI: normal bowel sounds, non tender, soft Extremities: no calf tenderness, normal capillary refill, no pedal edema Neurologic/Psychiatric: alert, normal mood/affect, oriented x 3 Skin: normal color, warm/dry, no rash Hospital Course 45 year old female who is an active smoker with lifestyle-controlled hypertension that presents with NSTEMI and new onset diabetes NSTEMI - EKG consistent with inferior wall infarct, troponin peak of 3.53, Echo showed Mild left ventricular systolic dysfunction with concentric hypertrophy. Inferior, basal septal, basal posterior hypokinesis present. Cardiology Consulted - recs appreciated. Right heart cathed on 07/06 with placement of 2 THELMA in RCA. - Continue metoprolol 25mg PO BID, atorvastatin 40mg qHS, aspirin 325mg daily, clopidogrel 75mg daily, lisinopril 10mg qAM - Repeat BMP in 1-2 weeks to rule out JOSE secondary to lisinopril use New Onset Diabetes - Urine ketones positive, serum beta-hydroxybutarate - 2.71 ( wnl). HBA1c 11.6. Diabetic education provided regarding appropriate changes in diet and exercise. - Patient discharged on Lantus 18 units qhs, with plans to follow up with PCP and switch to metformin once pending C-peptide, Islet antibodies, insulin antibody results return, if appropriate. Smoking cessation - Prescription sent for Wellbutrin. Patient advised to take 150mg daily x 3 days , and then change to 150mg BID dosing. Yeast infection - Given Fluconazole 150mg once Electrolytes - hypokalemia, hypomagnesemia, hypophosphatemia currently WNL Hypertension - Continue Metoprolol 25 mg BID and lisinopril 10mg qAM Code Status - Full resuscitation Total Time Spent: Less than 30 minutes This includes examination of the patient, discharge planning, medication reconciliation, and communication with other providers. Discharge Instructions Please refer to the electronic Patient Visit Report (Discharge Instructions) for additional information.
[2016-07-16 04:19] LABS: GLUTAMIC ACID DECARBOXYLASE-65 <5 IU/mL (<5); INSULIN AUTOANTIBODY 36178 <0.4 U/mL (<0.4); ISLET CELL AB NEGATIVE (NEGATIVE)
== END 2016-07-07 15:48 | disposition home or self-care (01) | DRG 246 ==
LOC: C.2E 18:08 → OBSVTOIN 19:35
PROVIDERS: ADMIT Hospitalist; ATTEND Family Medicine
PROC: B2111ZZ Fluoroscopy of Multiple Coronary Arteries using Low Osmolar Contrast (ICD-10-PCS; principal; 2016-07-06 10:55)
PROC: 027034Z Dilation of Coronary Artery, One Artery with Drug-eluting Intraluminal Device, Percutaneous Approach (ICD-10-PCS; principal; 2016-07-06 10:55)
PROC: 4A023N7 Measurement of Cardiac Sampling and Pressure, Left Heart, Percutaneous Approach (ICD-10-PCS; principal; 2016-07-06 10:55)
DX: I21.4 Non-ST elevation (NSTEMI) myocardial infarction (principal); N17.9 Acute kidney failure, unspecified; E13.10 Other specified diabetes mellitus with ketoacidosis without coma; I10 Essential (primary) hypertension; I47.2 Ventricular tachycardia; F17.210 Nicotine dependence, cigarettes, uncomplicated; I25.10 Atherosclerotic heart disease of native coronary artery without angina pectoris; E66.9 Obesity, unspecified; T46.4X5A Adverse effect of angiotensin-converting-enzyme inhibitors, initial encounter; E87.6 Hypokalemia; E83.42 Hypomagnesemia; E83.39 Other disorders of phosphorus metabolism; Y92.009 Unspecified place in unspecified non-institutional (private) residence as the place of occurrence of the external cause